=== PATIENT | male | born 1950 | race Caucasian/White ===

== ENCOUNTER → 2018-03-06 08:38 | Outpatient (CLI) | payer OTHER, SELFPAY ==
[2018-03-06 09:30] LABS: Absolute Lymphocyte Count 0.22 X10^3/ul (0.83-4.51); Absolute Neutrophil Count 3.8 X10^3/uL (2.0-7.7); Basophil# 0.02 X10^3/uL; Basophil% 0.5 % (0-1); Eosinophil# 0.04 X10^3/uL; Eosinophils% 0.9 % (0-5); Hematocrit 32.6 % (40-54); Hemoglobin 10.3 g/dl (13.0-16.5); Lymphocyte # 0.22 X10^3/ul (4.0); Lymphocyte % 5.1 % (19-41); Mean Corp Hgb Conc 31.6 g/gl (32-36); Mean Corpuscular Hgb 34.4 pg (27.0-32.0); Mean Platelet Vol. 9.8 fl (6.2-12.0); Monocyte# 0.18 X10^3/uL; Monocyte% 4.2 % (0-10); Neutrophil # 3.75 X10^3/uL (2.7-7.7); Neutrophil % 87.4 % (47-70); POSITIVE COUNT NO; POSITIVE DIFFERENTIAL YES; POSITIVE MORPHOLOGY YES; Platelet Count 166 K/mm3 (150-450); RBC Distribution Width CV 16.8 % (11.6-14.6); RBC Distribution Width SD 65.2 fl (35.1-43.9); Red Blood Count 2.99 M/mm3 (4.6-6.2); White Blood Count 4.3 K/mm3 (4.4-11.0)
[2018-03-06 09:31] LABS: Differential Indicated SCAN CRITERIA MET
[2018-03-06 09:39] LABS: BUN 61 mg/dL (7-18); BUN/Creat Ratio 38.4 RATIO (10-20); Calcium,Total 8.8 mg/dL (8.5-10.1); Chloride 105 mmol/L (98-107); Creatinine, Serum 1.59 mg/dL (0.70-1.30); EST Glomerular Filtration Rate 46 mL/min (>60); Est Glom Filt Rate - Afr Amer 56 mL/min (>60); Glucose 109 mg/dL (74-106); Magnesium 1.7 mg/dL (1.6-2.6); Phosphorus 2.2 mg/dL (2.5-4.9); Potassium 4.2 mmol/L (3.5-5.1); Sodium Level 141 mmol/L (136-145)
[2018-03-06 09:41] LABS: Anisocytosis 2+; Differential Comment SCANNED; Macrocytosis 2+
[2018-03-10 13:46] LABS: Tacrolimus (FK506) 4.7 ng/mL (2.0-20.0)
== END ==
PROVIDERS: Family Provider Family Medicine; PCP Family Medicine
DX: Z94.0 Kidney transplant status (principal)
CPT/HCPCS: 36415; 80069; 80197; 83735; 85025

== ENCOUNTER 2018-10-06 12:54 | Inpatient (IN) | payer MEDICARE, SELFPAY ==
[2018-10-06 13:02] VITALS: BP 144/101; PULSE 89; RESP 22; TEMP 36.7; O2SAT 99; BMI 34.4
--- NOTE | 2018-10-06 13:07 | EKG12_ITS ---
Test Reason : WEAKNESS Blood Pressure : / mmHG Vent. Rate : 088 BPM Atrial Rate : 088 BPM P-R Int : 198 ms QRS Dur : 144 ms QT Int : 388 ms P-R-T Axes : 011 -02 -10 degrees QTc Int : 469 ms Sinus rhythm with occasional Premature ventricular complexes Right bundle branch block Minimal voltage criteria for LVH, may be normal variant Abnormal ECG Confirmed by JAVIER FERRARO, JOSE ([id number]), acquisition editor BRIGETTE PNEG ([id number]) on 10/07/2018 1:35:06 PM Referred By: Bulmaro Person Confirmed By:JOSE HERRERA MD
--- NOTE | 2018-10-06 13:32 | RAD_ITS ---
STUDY: X-RAY CHEST REASON FOR EXAM: Male, 67 years old. Weakness following a fall. TECHNIQUE: Single AP portable view of the chest. COMPARISON: None. FINDINGS: EKG electrodes are seen. Blunting of both cost phrenic angles with mild bibasilar atelectasis. There is moderate cardiac enlargement. Normal mediastinum and bran. Normal visualized pulmonary arteries. There is atherosclerotic calcification of the aortic arch with tortuosity. There are diffuse degenerative changes of the visualized thoracic spine. There is degenerative osteoarthritis of the bilateral shoulders. Distended colon especially of the splenic flexure. RAD/Chest 1 View (Portable) IMPRESSION: Blunting of both costophrenic angles with mild degree of bibasilar atelectasis. Cardiomegaly. Distended colon. Electronically Signed: Kareem Mejia, at 14:15 EDT , Service support ,
--- NOTE | 2018-10-06 13:32 | CT_ITS ---
STUDY: CT BRAIN WITHOUT CONTRAST REASON FOR EXAM: Male, 67 years old. History of falls. RADIATION DOSAGE (If Supplied By Facility): CTDIvol = ( 60.81 ) mGy, DLP = ( 1135.50 ) mGycm TECHNIQUE: Transaxial CT imaging of the brain was performed without administration of intravenous contrast material. Individualized dose optimization techniques were used for this CT. COMPARISON: No relevant priors. FINDINGS: Normal soft tissue structures. Normal calvarium. There is mild cerebral atrophy with widening of the extra-axial spaces and ventricular dilatation. Normal white matter tracts of the cerebral hemispheres. Normal basal ganglia and thalami. Normal brainstem. Normal cerebellum. There is no intracranial hemorrhage. There are no findings of an acute ischemic infarction. Atherosclerotic calcification of the cavernous portions of the internal carotid arteries bilaterally. Mucosal thickening of the left maxillary sinus and ethmoid sinus. CT/Brain/Head without Contrast IMPRESSION: Chronic involutional changes of the brain. Electronically Signed: Kareem Mejia, at 14:35 EDT , Service support ,
[2018-10-06 15:03] LABS: Absolute Lymphocyte Count 0.85 X10^3/ul (0.83-4.51); Absolute Neutrophil Count 6.7 X10^3/uL (2.0-7.7); Basophil# 0.01 X10^3/uL; Basophil% 0.1 % (0-1); Hematocrit 36.7 % (40-54); Hemoglobin 11.9 g/dl (13.0-16.5); Lymphocyte # 0.85 X10^3/ul (4.0); Lymphocyte % 9.3 % (19-41); Mean Corp Hgb Conc 32.4 g/gl (32-36); Mean Corpuscular Hgb 32.1 pg (27.0-32.0); Mean Corpuscular Volume 98.9 fL (80-94); Mean Platelet Vol. 11.3 fl (6.2-12.0); Monocyte# 1.47 X10^3/uL; Monocyte% 16.2 % (0-10); Neutrophil # 6.68 X10^3/uL (2.7-7.7); Neutrophil % 73.4 % (47-70); Platelet Count 98 K/mm3 (150-450); RBC Distribution Width CV 13.6 % (11.6-14.6); RBC Distribution Width SD 49.1 fl (35.1-43.9); Red Blood Count 3.71 M/mm3 (4.6-6.2); White Blood Count 9.1 K/mm3 (4.4-11.0)
[2018-10-06 15:04] LABS: POSITIVE COUNT NO; POSITIVE DIFFERENTIAL NO; POSITIVE MORPHOLOGY NO
[2018-10-06 15:30] LABS: Squamous Epithelial Cells - UA 0 SEEN /hpf (0-5)
[2018-10-06 15:33] LABS: AST(SGOT) 68 U/L (15-37); Alanine Aminotransfer ALT/SGPT 28 U/L (16-61); Albumin, Serum 2.9 g/dL (3.2-5.0); Alkaline Phosphatase 62 U/L (45-117); Anion Gap 9 (5-15); BUN 53 mg/dL (7-18); BUN/Creat Ratio 29.9 RATIO (10-20); Bilirubin, Direct 0.38 mg/dL (0.00-0.30); Chloride 112 mmol/L (98-107); Creatinine, Serum 1.77 mg/dL (0.70-1.30); EST Glomerular Filtration Rate 41 mL/min (>60); Est Glom Filt Rate - Afr Amer 49 mL/min (>60); Estimated Creatinine Clearance 40.67 ml/min; Glucose 127 mg/dL (74-106); Lipase 55 U/L (73-393); Potassium 5.2 mmol/L (3.5-5.1); Protein, Total 5.9 g/dL (6.4-8.2); Sodium Level 143 mmol/L (136-145)
[2018-10-06 15:36] VITALS: BP 141/106; PULSE 86; RESP 22; O2SAT 97
[2018-10-06 15:37] LABS: Color, Urine Amber (Yellow); Glucose, Dipstick 1000 mg/dl (Normal); Ketone-Dipstick 5 mg/dl (Negative); Leukocyte Esterase-Dipstick 25 /ul (Negative); Nitrite-Dipstick Negative (Negative); Occult Blood-Urine 250 /ul (Negative); Protein-Dipstick 100 mg/dl (Negative); Specific Gravity, Urine 1.025 (1.002-1.030); Urine Clarity Clear (Clear); Urine Urobilinogen 4 mg/dl (Normal)
[2018-10-06 15:43] LABS: Urine Bilirubin Dipstick 1 mg/dL (Negative)
[2018-10-06 15:44] LABS: Valproic Acid (Depakene) Level 50 ug/mL (50-100)
[2018-10-06 15:47] LABS: Bacteria 3+ /hpf (None Seen); Fine Granular Cast- Urine 0-5 SEEN /lpf (0-5); Hyaline Cast 0-5 SEEN /lpf (0-5); Mucous, Urine 1+ /hpf (<or=2+); Red Blood Cells-Urine 0-5 SEEN /hpf (0-5); White Blood Cells 0-5 SEEN /hpf (0-5)
--- NOTE | 2018-10-06 16:22 | ED.VISSUMM ---
- ER Visit Summary Date of Service: 10/06/18 Chief Complaint: Falls History of Present Illness: The patient is a 67 M who was found on the ground today by family. He apparently has laid there for about 24 hours. Patient states that he was feeling nauseated after eating [employer] and laid down on the ground. While there he vomited. 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 He also notes a history of seizures for which he takes Depakote. He tells me that and family concurs that up until 1 month ago he drove himself to [place] for his nephrology appointment. Family states that his and he has had very much frequent falls recently. He stopped going over to their house because they have several steps to go up into it. He is developed a tremor at his baseline. The patient is noted to be confused by family Physical Examination: Afebrile vital signs are stable Gen: Well-nourished well-developed Head: Normocephalic periorbital swelling Eyes: Perrl EOMI ENT: TMs clear no rhinorrhea moist mucous membranes Neck: Supple no lymphadenopathy no JVD nontender CVS: Regular rate rhythm no murmurs normal S1-S2 Respiratory: No distress clear to auscultation bilaterally chest nontender Abdomen: Soft nontender nondistended normal bowel sounds no masses Back: Nontender Extremity: Audible abrasions and contusions. Skin: Ecchymotic area on the right posterior iliac crest region. Neuro: alert orientated x3. However he speaks of his living at home even though she has . He appears globally weak. He has a resting tremor. Psych: Normal affect normal mood Test Results: White count 9.1 hemoglobin 11.9. EKG sinus at a rate of 88 with a right bundle branch block. Creatinine 1.77 BUN of 53. Chest x-ray negative. CT brain negative. CPK is 1518. Emergency Department Course and Treatment: Given IV fluids. Plan will be admission to the hospital. Patient will need physical therapy as well as social work consults. I have reservation about this patient returning to the home. Impression: 1. Rhabdomyolysis 2. Functional decline 3. Renal transplant patient This note was generated with [employer] software. It may contain incorrect words, spelling, and punctuation that were not noted in review of the chart prior to signing ED Disposition - Plan for ED Patient: Referrals: Maame Osorio [Primary Care Provider] -
[2018-10-06 16:27] LABS: CPK Total, Creatine Kinase 1518 U/L (39-308)
[2018-10-06] MEDS: 0.9% Normal Saline 1,000 ML 999 ML IV (16:31)
[2018-10-06 17:09] VITALS: BP 195/90; PULSE 88
[2018-10-06 17:16] VITALS: BMI 34.4
--- NOTE | 2018-10-06 17:35 | PCM.HP.STD ---
Problem List (1) Rhabdomyolysis Status: Acute Qualifiers: Encounter type: initial encounter (2) Failure to thrive Status: Acute Qualifiers: Failure to thrive age range: in adult Qualified Code(s): R62.7 - Adult failure to thrive History of Present Illness Date of Admission: 10/06/18 Chief Complaint: falls The patient is a 67 year old M who has been falling intermittently over the past several months. Patient's had several falls over the past week and then felt today. Patient's jyrosw-np-xhb is present and provides much of the history, the patient is confused and unable to provide history at this time. Patient sister a lot while his 3 houses down from and with the patient was contacting his neighbor to help him up. And so patient was brought to the hospital this time around. Patient was found to have rhabdomyolysis with a CPK of 1518. The rest of his workup was unremarkable. [] Past Medical History Medical History: Medical History (Last Updated 10/06/18 @ 17:39 by Bulmaro Person DO) BPH (benign prostatic hyperplasia) N40.0 Allergies No Known Allergies Allergy (Verified 10/06/18 13:02) Home Medications: Ambulatory Orders Medication Instructions Recorded Docusate Sodium 100 mg PO DAILY 10/06/18 Folic Acid/Vit B Complex and C 0.8 mg PO DAILY 10/06/18 [Renal-Colton Tablet] Prednisone 5 mg PO DAILY 10/06/18 Tacrolimus Anhydrous [Prograf] 3 mg PO TID 10/06/18 Tamsulosin HCl [Flomax] 0.4 mg PO DAILY 10/06/18 Surgical History: Surgical History (Last Updated 10/06/18 @ 17:38 by Bulmaro Person DO) Renal transplant recipient Z94.0 Lives: Alone Smoking Status: Never smoker Tobacco Use: Non-smoker Alcohol: None Drugs: None - *Family History Maternal History Items: Unknown Review of Systems Comment: Unable to obtain review of systems, social history, family history because the patient is confused and not a reliable historian at this time. VTE Information - Inpt Only VTE Present on Admission: No VTE Pharm Prophylaxis ordered?: Yes Patient Problems: Active and Suspected Problems Rhabdomyolysis (Acute) Failure to thrive (Acute) - Physical Exam General: Alert, Well developed, Well nourished, - - Oriented to self. 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 Sloughing skin of the lower extremities. Musculoskeletal: No Tenderness to Palpation of Joints or Extremities, No Muscle Wasting Neurological: Cranial nerves II-XII grossly intact, Neuro grossly intact, Motor Exam 5/5 strength throughout, - - Tremulousness in the upper extremities Psych/Mental Status: Appropriate, Anxious Vital Signs Temp Pulse Resp BP Pulse Ox 36.7 C 88 22 H 195/90 H 97 10/06/18 13:02 10/06/18 17:09 10/06/18 15:36 10/06/18 17:09 10/06/18 15:36 Oxygen Delivery Method Room Air Weight: 108.862 kg Body Mass Index (BMI) 34.4 Laboratory Tests Past 24 Hrs 10/06/18 10/06/18 10/06/18 14:45 14:45 14:45 WBC 9.1 RBC 3.71 L Hgb 11.9 L Hct 36.7 L MCV 98.9 H MCH 32.1 H MCHC 32.4 RDW 13.6 RDW Differential 49.1 H Plt Count 98 L MPV 11.3 Immature Gran % (Auto) 1.000 H Neut % (Auto) 73.4 H Lymph % (Auto) 9.3 L [place] % (Auto) 16.2 H Eos % (Auto) 0.0 Baso % (Auto) 0.1 Absolute Neuts (auto) 6.7 Absolute Lymphs (auto) 0.85 Total Counted Not Reportable Sodium 143 Potassium 5.2 H Chloride 112 H Carbon Dioxide 22.0 Anion Gap 9 BUN 53 H Creatinine 1.77 H Estim Creat Clear Calc 40.67 Est GFR (MDRD) Af Amer 49 L Est GFR (MDRD) Non-Af 41 L BUN/Creatinine Ratio 29.9 H Glucose 127 H Calcium 10.0 Total Bilirubin 0.80 Direct Bilirubin 0.38 H AST 68 H ALT 28 Alkaline Phosphatase 62 Total Creatine Kinase 1518 H Troponin I 0.078 H Total Protein 5.9 L Albumin 2.9 L Globulin 3.0 Lipase 55 L Urine Color Urine Clarity Urine pH Ur Specific [place] Urine Protein Urine Glucose (UA) Urine Ketones Urine Occult Blood Urine Nitrite Urine Bilirubin Urine Urobilinogen Ur Leukocyte Esterase Urine RBC Urine WBC Ur Squamous Epith Cells Urine Bacteria Hyaline Casts Fine Granular Casts Urine Mucus Valproic Acid 10/06/18 10/06/18 14:45 15:15 WBC RBC Hgb Hct MCV MCH MCHC RDW RDW Differential Plt Count MPV Immature Gran % (Auto) Neut % (Auto) Lymph % (Auto) [place] % (Auto) Eos % (Auto) Baso % (Auto) Absolute Neuts (auto) Absolute Lymphs (auto) Total Counted Sodium Potassium Chloride Carbon Dioxide Anion Gap BUN Creatinine Estim Creat Clear Calc Est GFR (MDRD) Af Amer Est GFR (MDRD) Non-Af BUN/Creatinine Ratio Glucose Calcium Total Bilirubin Direct Bilirubin AST ALT Alkaline Phosphatase Total Creatine Kinase Troponin I Total Protein Albumin Globulin Lipase Urine Color Jami Urine Clarity Clear Urine pH 5.0 Ur Specific [place] 1.025 Urine Protein 100 H Urine Glucose (UA) 1000 H Urine Ketones 5 H Urine Occult Blood 250 H Urine Nitrite Negative Urine Bilirubin 1 H Urine Urobilinogen 4 H Ur Leukocyte Esterase 25 H Urine RBC 0-5 SEEN Urine WBC 0-5 SEEN Ur Squamous Epith Cells 0 SEEN Urine Bacteria 3+ Hyaline Casts 0-5 SEEN Fine Granular Casts 0-5 SEEN Urine Mucus 1+ Valproic Acid 50 Clinical Impression(s) from Imaging Studies Brain CT 10/06/18 13:32 IMPRESSION: Chronic involutional changes of the brain. Electronically Signed: Kareem Mejia, at 14:35 EDT , Service support , Chest X-Ray 10/06/18 13:32 IMPRESSION: Blunting of both costophrenic angles with mild degree of bibasilar atelectasis. Cardiomegaly. Distended colon. Electronically Signed: Kareem Mejia, at 14:15 EDT , Service support , Assessment/Plan All Active Problems Rhabdomyolysis (Acute) Failure to thrive (Acute) 1. Acute rhabdomyolysis: Secondary to being down for period of time. Continue with IV fluids Recheck CPK in the morning Troponins were slightly elevated and this may be skewed upwards given the rhabdomyolysis. We will cycle the troponins. 2. Suspected metabolic encephalopathy Perhaps secondary to some dehydration. Review of his medications do not reveal any obvious Etiology at this time. Avoid potentiating medications 3. Status post renal transplant Discussed with patient's jundqyvo-[id number] that we can manage him here and continue with his transplant medications but if any sign of worsening kidney failure that he may need to be transferred to another hospital with transplant physicians. Will request records from [facility] in regards to their transplant unit. 4. Debility and failure to thrive Has been progressive over the past several months Physical and occupational therapy evaluate and treat Suspect patient may require long term facility upon discharge 5. DVT prophylaxis with subcu heparin. Code Visit Inpatient E&M: 02141 Init Hosp L3
--- NOTE | 2018-10-06 17:40 | HP.PCM_ITS ---
Problem List (1) Rhabdomyolysis Status: Acute Qualifiers: Encounter type: initial encounter (2) Failure to thrive Status: Acute Qualifiers: Failure to thrive age range: in adult Qualified Code(s): R62.7 - Adult failure to thrive History of Present Illness Date of Admission: 10/06/18 Chief Complaint: falls The patient is a 67 year old M who has been falling intermittently over the past several months. Patient's had several falls over the past week and then felt today. Patient's [id number] is present and provides much of the history, the patient is confused and unable to provide history at this time. Patient sister a lot while his 3 houses down from and with the patient was contacting his neighbor to help him up. And so patient was brought to the hospital this time around. Patient was found to have rhabdomyolysis with a CPK of 1518. The rest of his workup was unremarkable. [] Past Medical History Medical History: Medical History (Last Updated 10/06/18 @ 17:39 by Bulmaro Person DO) BPH (benign prostatic hyperplasia) N40.0 Allergies No Known Allergies Allergy (Verified 10/06/18 13:02) Home Medications: Ambulatory Orders Medication Instructions Recorded Docusate Sodium 100 mg PO DAILY 10/06/18 Folic Acid/Vit B Complex and C 0.8 mg PO DAILY 10/06/18 [Renal-Colton Tablet] Prednisone 5 mg PO DAILY 10/06/18 Tacrolimus Anhydrous [Prograf] 3 mg PO TID 10/06/18 Tamsulosin HCl [Flomax] 0.4 mg PO DAILY 10/06/18 Surgical History: Surgical History (Last Updated 10/06/18 @ 17:38 by Bulmaro Person DO) Renal transplant recipient Z94.0 Lives: Alone Smoking Status: Never smoker Tobacco Use: Non-smoker Alcohol: None Drugs: None - *Family History Maternal History Items: Unknown Review of Systems Comment: Unable to obtain review of systems, social history, family history because the patient is confused and not a reliable historian at this time. VTE Information - Inpt Only VTE Present on Admission: No VTE Pharm Prophylaxis ordered?: Yes Patient Problems: Active and Suspected Problems Rhabdomyolysis (Acute) Failure to thrive (Acute) - Physical Exam General: Alert, Well developed, Well nourished, - - Oriented to self. 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 Sloughing skin of the lower extremities. Musculoskeletal: No Tenderness to Palpation of Joints or Extremities, No Muscle Wasting Neurological: Cranial nerves II-XII grossly intact, Neuro grossly intact, Motor Exam 5/5 strength throughout, - - Tremulousness in the upper extremities Psych/Mental Status: Appropriate, Anxious Vital Signs Temp Pulse Resp BP Pulse Ox 36.7 C 88 22 H 195/90 H 97 10/06/18 13:02 10/06/18 17:09 10/06/18 15:36 10/06/18 17:09 10/06/18 15:36 Oxygen Delivery Method Room Air Weight: 108.862 kg Body Mass Index (BMI) 34.4 Laboratory Tests Past 24 Hrs 10/06/18 10/06/18 10/06/18 14:45 14:45 14:45 WBC 9.1 RBC 3.71 L Hgb 11.9 L Hct 36.7 L MCV 98.9 H MCH 32.1 H MCHC 32.4 RDW 13.6 RDW Differential 49.1 H Plt Count 98 L MPV 11.3 Immature Gran % (Auto) 1.000 H Neut % (Auto) 73.4 H Lymph % (Auto) 9.3 L [place] % (Auto) 16.2 H Eos % (Auto) 0.0 Baso % (Auto) 0.1 Absolute Neuts (auto) 6.7 Absolute Lymphs (auto) 0.85 Total Counted Not Reportable Sodium 143 Potassium 5.2 H Chloride 112 H Carbon Dioxide 22.0 Anion Gap 9 BUN 53 H Creatinine 1.77 H Estim Creat Clear Calc 40.67 Est GFR (MDRD) Af Amer 49 L Est GFR (MDRD) Non-Af 41 L BUN/Creatinine Ratio 29.9 H Glucose 127 H Calcium 10.0 Total Bilirubin 0.80 Direct Bilirubin 0.38 H AST 68 H ALT 28 Alkaline Phosphatase 62 Total Creatine Kinase 1518 H Troponin I 0.078 H Total Protein 5.9 L Albumin 2.9 L Globulin 3.0 Lipase 55 L Urine Color Urine Clarity Urine pH Ur Specific [place] Urine Protein Urine Glucose (UA) Urine Ketones Urine Occult Blood Urine Nitrite Urine Bilirubin Urine Urobilinogen Ur Leukocyte Esterase Urine RBC Urine WBC Ur Squamous Epith Cells Urine Bacteria Hyaline Casts Fine Granular Casts Urine Mucus Valproic Acid 10/06/18 10/06/18 14:45 15:15 WBC RBC Hgb Hct MCV MCH MCHC RDW RDW Differential Plt Count MPV Immature Gran % (Auto) Neut % (Auto) Lymph % (Auto) [place] % (Auto) Eos % (Auto) Baso % (Auto) Absolute Neuts (auto) Absolute Lymphs (auto) Total Counted Sodium Potassium Chloride Carbon Dioxide Anion Gap BUN Creatinine Estim Creat Clear Calc Est GFR (MDRD) Af Amer Est GFR (MDRD) Non-Af BUN/Creatinine Ratio Glucose Calcium Total Bilirubin Direct Bilirubin AST ALT Alkaline Phosphatase Total Creatine Kinase Troponin I Total Protein Albumin Globulin Lipase Urine Color Jami Urine Clarity Clear Urine pH 5.0 Ur Specific [place] 1.025 Urine Protein 100 H Urine Glucose (UA) 1000 H Urine Ketones 5 H Urine Occult Blood 250 H Urine Nitrite Negative Urine Bilirubin 1 H Urine Urobilinogen 4 H Ur Leukocyte Esterase 25 H Urine RBC 0-5 SEEN Urine WBC 0-5 SEEN Ur Squamous Epith Cells 0 SEEN Urine Bacteria 3+ Hyaline Casts 0-5 SEEN Fine Granular Casts 0-5 SEEN Urine Mucus 1+ Valproic Acid 50 Clinical Impression(s) from Imaging Studies Brain CT 10/06/18 13:32 IMPRESSION: Chronic involutional changes of the brain. Electronically Signed: Kareem Mejia, at 14:35 EDT , Service support , Chest X-Ray 10/06/18 13:32 IMPRESSION: Blunting of both costophrenic angles with mild degree of bibasilar atelectasis. Cardiomegaly. Distended colon. Electronically Signed: Kareem Mejia, at 14:15 EDT , Service support , Assessment/Plan All Active Problems Rhabdomyolysis (Acute) Failure to thrive (Acute) 1. Acute rhabdomyolysis: * Secondary to being down for period of time. * Continue with IV fluids * Recheck CPK in the morning * Troponins were slightly elevated and this may be skewed upwards given the rhabdomyolysis. We will cycle the troponins. 2. Suspected metabolic encephalopathy * Perhaps secondary to some dehydration. Review of his medications do not reveal any obvious Etiology at this time. * Avoid potentiating medications 3. Status post renal transplant * Discussed with patient's drdrhofh-[id number] that we can manage him here and continue with his transplant medications but if any sign of worsening kidney failure that he may need to be transferred to another hospital with transplant physicians. * Will request records from [facility] in regards to their transplant unit. 4. Debility and failure to thrive * Has been progressive over the past several months * Physical and occupational therapy evaluate and treat * Suspect patient may require detention facility upon discharge 5. DVT prophylaxis with subcu heparin. Code Visit Inpatient E&M: 86189 Init Hosp L3
[2018-10-06 18:45] VITALS: BP 122/90; PULSE 89; RESP 18; TEMP 37.5; O2SAT 99
[2018-10-06 18:55] VITALS: BMI 36.1
[2018-10-06] MEDS: 0.9% Normal Saline 1,000 ML 150 ML IV ×2 (19:03→22:45)
[2018-10-06] MEDS: levETIRAcetam 1,000 MG Tablet 1000 MG PO (22:46)
[2018-10-06] MEDS: Heparin Injection (Vial) 5,000 UNIT/ML VIAL 5000 UNIT SC (22:46)
[2018-10-06] MEDS: Tacrolimus Anhydrous 1 MG Capsule 3 MG PO (22:47)
[2018-10-06 23:05] LABS: Bedside Glucose 79 mg/dL (70-110)
[2018-10-07 01:27] VITALS: BP 136/96; PULSE 59; RESP 18; TEMP 37.4; O2SAT 97
[2018-10-07] MEDS: 0.9% Normal Saline 1,000 ML 150 ML IV ×3 (05:32→19:50)
[2018-10-07] MEDS: Tacrolimus Anhydrous 1 MG Capsule 3 MG PO ×3 (05:34→21:30)
[2018-10-07] MEDS: Heparin Injection (Vial) 5,000 UNIT/ML VIAL 5000 UNIT SC ×3 (05:34→21:30)
[2018-10-07 06:28] LABS: Absolute Lymphocyte Count 1.51 X10^3/ul (0.83-4.51); Absolute Neutrophil Count 4.9 X10^3/uL (2.0-7.7); Basophil# 0.01 X10^3/uL; Basophil% 0.1 % (0-1); Eosinophil# 0.01 X10^3/uL; Eosinophils% 0.1 % (0-5); Hematocrit 29.9 % (40-54); Hemoglobin 9.6 g/dl (13.0-16.5); Lymphocyte # 1.51 X10^3/ul (4.0); Lymphocyte % 21.4 % (19-41); Mean Corp Hgb Conc 32.1 g/gl (32-36); Mean Corpuscular Hgb 32.8 pg (27.0-32.0); Mean Platelet Vol. 11.6 fl (6.2-12.0); Monocyte# 0.65 X10^3/uL; Monocyte% 9.2 % (0-10); Neutrophil # 4.85 X10^3/uL (2.7-7.7); Neutrophil % 68.6 % (47-70); Platelet Count 112 K/mm3 (150-450); RBC Distribution Width CV 13.9 % (11.6-14.6); RBC Distribution Width SD 51.7 fl (35.1-43.9); Red Blood Count 2.93 M/mm3 (4.6-6.2); White Blood Count 7.1 K/mm3 (4.4-11.0)
[2018-10-07 06:39] LABS: Anion Gap 6 (5-15); BUN 53 mg/dL (7-18); BUN/Creat Ratio 32.3 RATIO (10-20); Calcium,Total 9.1 mg/dL (8.5-10.1); Chloride 113 mmol/L (98-107); Creatinine, Serum 1.64 mg/dL (0.70-1.30); EST Glomerular Filtration Rate 44 mL/min (>60); Est Glom Filt Rate - Afr Amer 54 mL/min (>60); Estimated Creatinine Clearance 43.89 ml/min; Glucose 112 mg/dL (74-106); Potassium 4.7 mmol/L (3.5-5.1); Sodium Level 143 mmol/L (136-145)
[2018-10-07 06:40] LABS: POSITIVE COUNT NO; POSITIVE DIFFERENTIAL NO; POSITIVE MORPHOLOGY NO
[2018-10-07 06:50] LABS: Bedside Glucose 125 mg/dL (70-110)
[2018-10-07 07:23] LABS: CPK Total, Creatine Kinase 1348 U/L (39-308)
[2018-10-07] MEDS: predniSONE 5 MG Tablet PO (08:31)
[2018-10-07] MEDS: Folic Acid/Vitamin B Comp W-C 1 Capsule 1 CAP PO (08:31)
[2018-10-07 08:33] VITALS: BP 126/74; PULSE 85; RESP 18; TEMP 37; O2SAT 98
--- NOTE | 2018-10-07 09:50 | PCM.PN.HOSP ---
Patient Problems: Active and Suspected Problems (Last Updated 10/06/18 @ 17:39 by Bulmaro Person DO) Rhabdomyolysis (Acute) Failure to thrive (Acute) Subjective: Patient seen and examined. He was admitted with a complaint of falls. He was found to have rhabdomyolysis with C PT of 1518. He has been managed for debility due to mechanical falls and rhabdomyolysis. Patient has no complaints this morning and feels better. He did admit to falling frequently at home. He lives alone and states that on Saturday he fell down and was on the floor for the whole day as he could not get up. He does have family that lives close by. He denies any fever chills, palpitations or dizziness, chest pain, diarrhea vomiting. Review of systems otherwise negative. Labs and vitals reviewed. Vitals/I&O's: Vital Signs Temp Pulse Resp BP Pulse Ox 98.6 F 85 18 126/74 H 98 10/07/18 08:33 10/07/18 08:33 10/07/18 08:33 10/07/18 08:33 10/07/18 08:33 Oxygen Delivery Method Room Air Weight: 251 lb 15.814 oz Body Mass Index (BMI) 36.1 Intake and Output for Last 24 Hours 10/05/18 10/06/18 10/07/18 23:59 23:59 23:59 Intake Total 2800 / 2800 Balance 2800 / 2800 General: Alert, Oriented x3, Cooperative, No apparent distress HEENT: Atraumatic, PERRLA, EOMI, Normocephalic Oral: Moist Mucosa Neck: Supple, No JVD, Negative Carotid Bruits Lungs: Clear to auscultation, Normal air movement, No rhonchi, No wheeze, No rales Cardiovascular: Regular rate, Regular Rhythm, Normal S1, Normal S2, No murmurs Abdomen: Bowel Sounds Present, Soft, Non Tender, Non-Distended, No Hepato-splenomegaly Extremities: No clubbing, No cyanosis, No edema, Capillary Refill Less than 3 Seconds Skin: - - has some excoriation s on upper extremities Musculoskeletal: No Tenderness to Palpation of Joints or Extremities Lymphatic: No Cervical, Supraclavicular, or Inguinal Adenopathy Neurological: Cranial nerves II-XII grossly intact, Neuro grossly intact Psych/Mental Status: Normal Affect, Appropriate, Alert and oriented to time, place, person, mood and affect Laboratory Results 10/06/18 14:45: WBC 9.1, RBC 3.71 L, Hgb 11.9 L, Hct 36.7 L, MCV 98.9 H, MCH 32.1 H, MCHC 32.4, RDW 13.6, RDW Differential 49.1 H, Plt Count 98 L, MPV 11.3, Immature Gran % (Auto) 1.000 H, Neut % (Auto) 73.4 H, Lymph % (Auto) 9.3 L, [place] % (Auto) 16.2 H, Eos % (Auto) 0.0, Baso % (Auto) 0.1, Absolute Neuts (auto) 6.7, Absolute Lymphs (auto) 0.85, Total Counted Not Reportable 10/06/18 14:45: Sodium 143, Potassium 5.2 H, Chloride 112 H, Carbon Dioxide 22.0, Anion Gap 9, BUN 53 H, Creatinine 1.77 H, Estim Creat Clear Calc 40.67, Est GFR (MDRD) Af Amer 49 L, Est GFR (MDRD) Non-Af 41 L, BUN/Creatinine Ratio 29.9 H, Glucose 127 H, Calcium 10.0, Total Bilirubin 0.80, Direct Bilirubin 0.38 H, AST 68 H, ALT 28, Alkaline Phosphatase 62, Troponin I 0.078 H, Total Protein 5.9 L, Albumin 2.9 L, Globulin 3.0, Lipase 55 L 10/06/18 14:45: Total Creatine Kinase 1518 H 10/06/18 14:45: Valproic Acid 50 10/06/18 15:15: Urine Color Jami, Urine Clarity Clear, Urine pH 5.0, Ur Specific [place] 1.025, Urine Protein 100 H, Urine Glucose (UA) 1000 H, Urine Ketones 5 H, Urine Occult Blood 250 H, Urine Nitrite Negative, Urine Bilirubin 1 H, Urine Urobilinogen 4 H, Ur Leukocyte Esterase 25 H, Urine RBC 0-5 SEEN, Urine WBC 0-5 SEEN, Ur Squamous Epith Cells 0 SEEN, Urine Bacteria 3+, Hyaline Casts 0-5 SEEN, Fine Granular Casts 0-5 SEEN, Urine Mucus 1+ 10/06/18 18:26: Ammonia 17.0 10/06/18 19:25: Troponin I 0.079 H 10/06/18 21:58: Troponin I 0.095 H 10/06/18 22:55: POC Glucose 79 10/07/18 05:18: WBC 7.1, RBC 2.93 L, Hgb 9.6 L, Hct 29.9 L, MCV 102.0 H, MCH 32.8 H, MCHC 32.1, RDW 13.9, RDW Differential 51.7 H, Plt Count 112 L, MPV 11.6, Immature Gran % (Auto) 0.600, Neut % (Auto) 68.6, Lymph % (Auto) 21.4, [place] % (Auto) 9.2, Eos % (Auto) 0.1, Baso % (Auto) 0.1, Absolute Neuts (auto) 4.9, Absolute Lymphs (auto) 1.51, Total Counted Not Reportable 10/07/18 05:18: Sodium 143, Potassium 4.7, Chloride 113 H, Carbon Dioxide 24.0, Anion Gap 6, BUN 53 H, Creatinine 1.64 H, Estim Creat Clear Calc 43.89, Est GFR (MDRD) Af Amer 54 L, Est GFR (MDRD) Non-Af 44 L, BUN/Creatinine Ratio 32.3 H, Glucose 112 H, Calcium 9.1 10/07/18 05:18: Total Creatine Kinase 1348 H 10/07/18 06:35: POC Glucose 125 H Diagnostic Data Brain CT 10/06/18 13:32 IMPRESSION: Chronic involutional changes of the brain. Electronically Signed: Kareem Mejia, at 14:35 EDT , Service support , Chest X-Ray 10/06/18 13:32 IMPRESSION: Blunting of both costophrenic angles with mild degree of bibasilar atelectasis. Cardiomegaly. Distended colon. Electronically Signed: Kareem Mejia, at 14:15 EDT , Service support , Current Medications Acetaminophen (Tylenol) 650 mg PO Q6H PRN PRN PRN Reason: Mild Pain (1-3)/Temp > 100.7 F Dextrose (D50w Syringe) 0 gm IV X1 PRN; Protocol PRN Reason: Hypoglycemia Docusate Sodium (Colace) 100 mg PO DAILY [facility] Glucagon () 1 mg IM .X1 PRN PRN Reason: Hypoglycemia Heparin Sodium (Porcine) (Heparin Na) 5,000 unit SC Q8 [facility] Last Admin: 10/07/18 05:34 Dose: 5,000 unit Sodium Chloride () 1,000 mls @ 150 mls/hr IV .Q6H40M [facility] Last Admin: 10/07/18 05:32 Dose: 150 mls/hr Levetiracetam (Keppra Tablet) 1,000 mg PO BID [facility] Last Admin: 10/06/18 22:46 Dose: 1,000 mg Magnesium Hydroxide (Milk Of Magnesia) 30 ml PO DAILY PRN PRN PRN Reason: Constipation Multivit/Ca Carb/B Cmplx/FA/Prenat (Nephrocaps, Renaphro) 1 capsule PO DAILY@0800 [facility] Last Admin: 10/07/18 08:31 Dose: 1 capsule Nystatin (Mycostatin Powder) 1 applic TOPICAL TID [facility]; Protocol Ondansetron HCl (Zofran) 4 mg IV Q8H PRN PRN PRN Reason: NAUSEA Prednisone () 5 mg PO DAILY@0800 [facility] Last Admin: 10/07/18 08:31 Dose: 5 mg Sodium Chloride () 5 - 15 ml IV UD PRN PRN Reason: SALINE FLUSH Tacrolimus (Prograf) 3 mg PO TID [facility] Last Admin: 10/07/18 05:34 Dose: 3 mg Tamsulosin HCl (Flomax) 0.4 mg PO DAILY [facility] Medical Necessity - Tobacco Use Smoking Status: Never smoker Tobacco Use: Non-smoker Assessment/Plan All Active Problems (Last Updated 10/06/18 @ 17:39 by Bulmaro Person DO) Rhabdomyolysis (Acute) Failure to thrive (Acute) 1. Rhabdomyolysis due to mechanical falls CPK was 1518 on admission, now down to 1348. Being hydrated with IV fluids. Will monitor CPK. 2. Debility and failure to thrive due to mechanical falls Has been falling frequently at home. PT OT consulted. 3. CKD status post renal transplant: Had a renal transplant last year. Currently stable. Creatinine is 1.64, was 1.77 on admission. Follows up at [facility] transplant unit. 4. Hyperkalemia: Potassium was 5.2 on admission and is now down to 4.7. Will monitor. 5. Indeterminate troponin: Troponin was 0.078 on admission and is now up to 0.095. Has no complaints of chest pain. EKG showed no acute ST changes. This is likely due to CKD. Will monitor. DVT prophylaxis; heparin Code Visit Inpatient E&M: 33226 Subs Hosp L3
--- NOTE | 2018-10-07 09:57 | PN_ITS ---
Patient Problems: Active and Suspected Problems (Last Updated 10/06/18 @ 17:39 by Bulmaro Person DO) Rhabdomyolysis (Acute) Failure to thrive (Acute) Subjective: Patient seen and examined. He was admitted with a complaint of falls. He was found to have rhabdomyolysis with C PT of 1518. He has been managed for debility due to mechanical falls and rhabdomyolysis. Patient has no complaints this morning and feels better. He did admit to falling frequently at home. He lives alone and states that on Saturday he fell down and was on the floor for the whole day as he could not get up. He does have family that lives close by. He denies any fever chills, palpitations or dizziness, chest pain, diarrhea vomiting. Review of systems otherwise negative. Labs and vitals reviewed. Vitals/I&O's: Vital Signs Temp Pulse Resp BP Pulse Ox 98.6 F 85 18 126/74 H 98 10/07/18 08:33 10/07/18 08:33 10/07/18 08:33 10/07/18 08:33 10/07/18 08:33 Oxygen Delivery Method Room Air Weight: 251 lb 15.814 oz Body Mass Index (BMI) 36.1 Intake and Output for Last 24 Hours 10/05/18 10/06/18 10/07/18 23:59 23:59 23:59 Intake Total 2800 / 2800 Balance 2800 / 2800 General: Alert, Oriented x3, Cooperative, No apparent distress HEENT: Atraumatic, PERRLA, EOMI, Normocephalic Oral: Moist Mucosa Neck: Supple, No JVD, Negative Carotid Bruits Lungs: Clear to auscultation, Normal air movement, No rhonchi, No wheeze, No rales Cardiovascular: Regular rate, Regular Rhythm, Normal S1, Normal S2, No murmurs Abdomen: Bowel Sounds Present, Soft, Non Tender, Non-Distended, No Hepato- splenomegaly Extremities: No clubbing, No cyanosis, No edema, Capillary Refill Less than 3 Seconds Skin: - - has some excoriation s on upper extremities Musculoskeletal: No Tenderness to Palpation of Joints or Extremities Lymphatic: No Cervical, Supraclavicular, or Inguinal Adenopathy Neurological: Cranial nerves II-XII grossly intact, Neuro grossly intact Psych/Mental Status: Normal Affect, Appropriate, Alert and oriented to time, place, person, mood and affect Laboratory Results 10/06/18 14:45: WBC 9.1, RBC 3.71 L, Hgb 11.9 L, Hct 36.7 L, MCV 98.9 H, MCH 32.1 H, MCHC 32.4, RDW 13.6, RDW Differential 49.1 H, Plt Count 98 L, MPV 11.3, Immature Gran % (Auto) 1.000 H, Neut % (Auto) 73.4 H, Lymph % (Auto) 9.3 L, [place] % (Auto) 16.2 H, Eos % (Auto) 0.0, Baso % (Auto) 0.1, Absolute Neuts (auto) 6.7, Absolute Lymphs (auto) 0.85, Total Counted Not Reportable 10/06/18 14:45: Sodium 143, Potassium 5.2 H, Chloride 112 H, Carbon Dioxide 22.0, Anion Gap 9, BUN 53 H, Creatinine 1.77 H, Estim Creat Clear Calc 40.67, Est GFR (MDRD) Af Amer 49 L, Est GFR (MDRD) Non-Af 41 L, BUN/Creatinine Ratio 29.9 H, Glucose 127 H, Calcium 10.0, Total Bilirubin 0.80, Direct Bilirubin 0.38 H, AST 68 H, ALT 28, Alkaline Phosphatase 62, Troponin I 0.078 H, Total Protein 5.9 L, Albumin 2.9 L, Globulin 3.0, Lipase 55 L 10/06/18 14:45: Total Creatine Kinase 1518 H 10/06/18 14:45: Valproic Acid 50 10/06/18 15:15: Urine Color Jami, Urine Clarity Clear, Urine pH 5.0, Ur Specific [place] 1.025, Urine Protein 100 H, Urine Glucose (UA) 1000 H, Urine Ketones 5 H, Urine Occult Blood 250 H, Urine Nitrite Negative, Urine Bilirubin 1 H, Urine Urobilinogen 4 H, Ur Leukocyte Esterase 25 H, Urine RBC 0-5 SEEN, Urine WBC 0-5 SEEN, Ur Squamous Epith Cells 0 SEEN, Urine Bacteria 3+, Hyaline Casts 0-5 SEEN, Fine Granular Casts 0-5 SEEN, Urine Mucus 1+ 10/06/18 18:26: Ammonia 17.0 10/06/18 19:25: Troponin I 0.079 H 10/06/18 21:58: Troponin I 0.095 H 10/06/18 22:55: POC Glucose 79 10/07/18 05:18: WBC 7.1, RBC 2.93 L, Hgb 9.6 L, Hct 29.9 L, MCV 102.0 H, MCH 32.8 H, MCHC 32.1, RDW 13.9, RDW Differential 51.7 H, Plt Count 112 L, MPV 11.6, Immature Gran % (Auto) 0.600, Neut % (Auto) 68.6, Lymph % (Auto) 21.4, [place] % (Auto) 9.2, Eos % (Auto) 0.1, Baso % (Auto) 0.1, Absolute Neuts (auto) 4.9, Absolute Lymphs (auto) 1.51, Total Counted Not Reportable 10/07/18 05:18: Sodium 143, Potassium 4.7, Chloride 113 H, Carbon Dioxide 24.0, Anion Gap 6, BUN 53 H, Creatinine 1.64 H, Estim Creat Clear Calc 43.89, Est GFR (MDRD) Af Amer 54 L, Est GFR (MDRD) Non-Af 44 L, BUN/Creatinine Ratio 32.3 H, Glucose 112 H, Calcium 9.1 10/07/18 05:18: Total Creatine Kinase 1348 H 10/07/18 06:35: POC Glucose 125 H Diagnostic Data Brain CT 10/06/18 13:32 IMPRESSION: Chronic involutional changes of the brain. Electronically Signed: Kareem Mejia, at 14:35 EDT , Service support , Chest X-Ray 10/06/18 13:32 IMPRESSION: Blunting of both costophrenic angles with mild degree of bibasilar atelectasis. Cardiomegaly. Distended colon. Electronically Signed: Kareem Mejia, at 14:15 EDT , Service support , Current Medications Acetaminophen (Tylenol) 650 mg PO Q6H PRN PRN PRN Reason: Mild Pain (1-3)/Temp > 100.7 F Dextrose (D50w Syringe) 0 gm IV X1 PRN; Protocol PRN Reason: Hypoglycemia Docusate Sodium (Colace) 100 mg PO DAILY [facility] Glucagon () 1 mg IM .X1 PRN PRN Reason: Hypoglycemia Heparin Sodium (Porcine) (Heparin Na) 5,000 unit SC Q8 [facility] Last Admin: 10/07/18 05:34 Dose: 5,000 unit Sodium Chloride () 1,000 mls @ 150 mls/hr IV .Q6H40M [facility] Last Admin: 10/07/18 05:32 Dose: 150 mls/hr Levetiracetam (Keppra Tablet) 1,000 mg PO BID [facility] Last Admin: 10/06/18 22:46 Dose: 1,000 mg Magnesium Hydroxide (Milk Of Magnesia) 30 ml PO DAILY PRN PRN PRN Reason: Constipation Multivit/Ca Carb/B Cmplx/FA/Prenat (Nephrocaps, Renaphro) 1 capsule PO DAILY@0800 [facility] Last Admin: 10/07/18 08:31 Dose: 1 capsule Nystatin (Mycostatin Powder) 1 applic TOPICAL TID [facility]; Protocol Ondansetron HCl (Zofran) 4 mg IV Q8H PRN PRN PRN Reason: NAUSEA Prednisone () 5 mg PO DAILY@0800 [facility] Last Admin: 10/07/18 08:31 Dose: 5 mg Sodium Chloride () 5 - 15 ml IV UD PRN PRN Reason: SALINE FLUSH Tacrolimus (Prograf) 3 mg PO TID [facility] Last Admin: 10/07/18 05:34 Dose: 3 mg Tamsulosin HCl (Flomax) 0.4 mg PO DAILY [facility] Medical Necessity - Tobacco Use Smoking Status: Never smoker Tobacco Use: Non-smoker Assessment/Plan All Active Problems (Last Updated 10/06/18 @ 17:39 by Bulmaro Person DO) Rhabdomyolysis (Acute) Failure to thrive (Acute) 1. Rhabdomyolysis due to mechanical falls * CPK was 1518 on admission, now down to 1348. * Being hydrated with IV fluids. * Will monitor CPK. * 2. Debility and failure to thrive due to mechanical falls * Has been falling frequently at home. * PT OT consulted. * 3. CKD status post renal transplant: * Had a renal transplant last year. * Currently stable. * Creatinine is 1.64, was 1.77 on admission. * Follows up at [facility] transplant unit. * 4. Hyperkalemia: Potassium was 5.2 on admission and is now down to 4.7. Will monitor. 5. Indeterminate troponin: * Troponin was 0.078 on admission and is now up to 0.095. * Has no complaints of chest pain. EKG showed no acute ST changes. * This is likely due to CKD. Will monitor. * DVT prophylaxis; heparin Code Visit Inpatient E&M: 61218 Subs Hosp L3
[2018-10-07] MEDS: Nystatin Powder 15gm Bottle 1 APPLIC TOPICAL ×3 (10:35→21:30)
[2018-10-07] MEDS: Docusate Sodium 100 MG Capsule PO (10:36)
[2018-10-07] MEDS: levETIRAcetam 1,000 MG Tablet 1000 MG PO ×2 (10:36→21:30)
--- NOTE | 2018-10-07 12:13 | CASEMGMT ---
RAINA CM Assessment Presentation: falls @ home, rhabdo Chart reviewed PCP: Specialists: Preferred Pharmacy: Insurance: Prescription Benefit: LNOK: Living Arrangements: Transportation: DME: HHC: Patient DC goals: DC PLAN:
--- NOTE | 2018-10-07 12:22 | CASEMGMT ---
RN CM Assessment Presentation: Rhabdo from fall Intro role of CM to patient in room. Pt is sleepy but awakens and able to participate in consumer relations specialist. Demographics and emergency contact verified. Discussed pt's admission to hospital. Pt has been weaker and hx of falls. Discussed PT/OT recommendations for therapy on dc and pt is agreeable to consider short term stay @ SNF. Pt spoke of and now is living alone. RN CM offered emotional support. PCP: Maame Osorio CONSTRUCTION COST ESTIMATOR with [facility] Preferred Pharmacy: [facility], preferred Insurance: [place] medicare Prescription Benefit: yes LNOK: Loretta Mcdonald, sister in law (entered in chart, was not listed on demographics) Living Arrangements/DME: one story home, see PT/OT eval for details HHC: none Patient DC goals: SNF SW Referral: SNF referral. Call to Mirna Savage to update. DC PLAN: anticipate SNF Jonah DOUGLAS RN ACM
--- NOTE | 2018-10-07 12:24 | ECHOCS_ITS ---
Reason For Study: CAD/ASHD Procedure This was a 2D Doppler, Color Flow transthoracic echocardiogram. The study was technically difficult. Due to body habitus and PT unable to lie in left lateral decubitus position. Exam performed supine. Contrast injection was performed. Exam performed portable in patient room. Left Ventricle Normal LV size. Left ventricular systolic function is normal. The estimated ejection fraction is 65 %. Unable to assess diastolic dysfunction. No regional wall motion abnormalities noted. Right Ventricle Normal RV size. Normal systolic function. Atria The left atrium is mildly enlarged. Normal right atrium. No doppler evidence for ASD. Mitral Valve There is moderate mitral annular calcification. Extension of the mitral annular calcification onto the posterior mitral valve leaflet. Trivial mitral valve insufficiency. Tricuspid Valve Normal tricuspid valve. Trivial tricuspid valve insufficiency. Unable to estimate RV systolic pressure/pulmonary artery pressure due to technically difficult study. Aortic Valve Trisinus/trileaflet aortic valve. Mild diffuse aortic valve thickening. Mild diffuse aortic valve calcification. Moderate aortic stenosis. Trivial aortic valve insufficiency. Pulmonic Valve The pulmonic valve is not well visualized. Trivial pulmonic valve insufficiency. Great Vessels Normal sized aortic root. Calcified aortic root. Pericardium/Pleural No pericardial effusion. Medication Diluted definity 3.5ml given slow IV push to enhance endocardial definition. MMode/2D Measurements & Calculations LVIDd: 4.2 cm IVSd: 1.2 cm LVOT diam: 2.3 cm LVIDs: 2.7 cm LVPWd: 1.5 cm RVDd: 3.6 cm FS: 34.5 % LVOT area: 4.2 cm2 Ao root diam: 3.6 cm LAV(MOD-bp): 60.2 ml LA A4 area: 19.5 cm2 LAV(MOD-bp) Indexed: 26.2 ml/m2 LAV(MOD-sp2): 72.5 ml LAV(MOD-sp4): 46.0 ml LA dimension(2D): 3.8 cm RA A4 area: 13.2 cm2 Doppler Measurements & Calculations MV E max caitlyn: 91.8 cm/sec Ao V2 max: 361.6 cm/sec LV V1 max: 122.3 cm/sec MV A max caitlyn: 139.8 cm/sec Ao max P.3 mmHg LV V1 max P.0 mmHg MV E/A: 0.66 Ao V2 mean: 284.1 cm/sec LV V1 mean P.7 mmHg Ao mean P.2 mmHg LV V1 mean: 93.0 cm/sec Ao V2 VTI: 81.7 cm LV V1 VTI: 30.8 cm NANCY(I,D): 1.6 cm2 NANCY(V,D): 1.4 cm2 SV(LVOT): 129.9 ml PA V2 max: 96.4 cm/sec Interpretation Summary The study was technically difficult. Contrast injection was performed. Left ventricular systolic function is normal. The estimated ejection fraction is 65 %. The left atrium is mildly enlarged. There is moderate mitral annular calcification. Extension of the mitral annular calcification onto the posterior mitral valve leaflet. Trivial mitral valve insufficiency. Trivial tricuspid valve insufficiency. Moderate aortic stenosis. Trivial aortic valve insufficiency. Trivial pulmonic valve insufficiency. Calcified aortic root. Unable to estimate RV systolic pressure/pulmonary artery pressure due to technically difficult study. Unable to assess diastolic dysfunction. Ordering Physician: Melva Parkinson Referring Physician: Bulmaro Person Performed By: Farzaneh Riley, KATHY, RVT
[2018-10-07 12:56] LABS: Bedside Glucose 96 mg/dL (70-110)
--- NOTE | 2018-10-07 13:34 | CM.ED ---
Addendum entered by Dorys Peters 10/07/18 13:49: SOCIAL WORK NOTE PLACED CALL TO [facility] AND SPOKE WITH MIRANDA IN ADMISSIONS. MIRANDA VERIFIES THAT THEY HAVE AVAILABLE MALE SKILLED BEDS AND TO FAX THE REFERRAL TO [phone] FOR REVIEW. WILL AWAIT CONFIRMATION FROM MIRANDA THAT THEY CAN ACCEPT AND WILL INITIATE PRE-CERT. SW TO CONTINUE TO FOLLOW AND ASSIST. PLAN: SNF PENDING ACCEPTANCE AND PRE-CERT. ERIC Hicks, MARIBEL Original Note: SOCIAL WORK NOTE FACE TO FACE WITH PT TO DISCUSS SNF PLACEMENT OPTIONS. INTRODUCED SELF AND ROLE AT [facility]. PT IS ALERT AND ORIENTED X3 AND ABLE TO PARTICIPATE IN ASSESSMENT. PT STATES THAT HE DOES WANT TO GO TO A SNF FOR REHABILITATION. STATES HE WOULD LIKE TO LOOK AT FACILITIES IN [place]. INFORM THAT THIS INTERNAL MEDICINE NURSE PRACTITIONER PRINTED OUT A LIST OF FACILITIES BASED ON DISTANCE FROM HIS HOME IN [place]. PT STATES HE WILL REVIEW AND CONTACT THIS INTERNAL MEDICINE NURSE PRACTITIONER TO COME OUT TO THE HOME. EXPLAIN THAT IF WE SEEK PLACEMENT THE PT WOULD BE DISCHARGED TO THAT FACILITY FROM [facility] AT DISCHARGE. PT EXPRESSES UNDERSTANDING. DENIES HAVING FAMILY OUT THERE, AND REPORTS TO HAVE FAMILY IN [place]. INQUIRE IF HE WOULD LIKE TO STAY WITHIN [facility] AND PT DECLINES AND CONTINUES TO STATE HE WOULD LIKE TO BE IN THE [place] AREA. EXPLAIN THAT THIS INTERNAL MEDICINE NURSE PRACTITIONER DOES NOT KNOW OF ANY FACILITIES IN [place], BUT THERE ARE SOME IN THE SURROUNDING AREAS OF [facility]. PT IS AGREEABLE TO HAVE THIS INTERNAL MEDICINE NURSE PRACTITIONER FAX REFERRALS TO 4 OR 5 [facility] FACILITIES IN [place]. SW TO CONTINUE TO FOLLOW AND ASSIST WITH DISCHARGE PLANNING. PLAN: SNF PENDING ACCEPTANCE AND PRE-CERT. ERIC Hicks LISW
--- NOTE | 2018-10-07 16:12 | CM.ED ---
SOCIAL WORK NOTE CALL FROM MIRANDA WITH [facility]. STATES THAT HER DON IS NOT IN TODAY AND SHE WILL CONTACT SW REGARDING THEIR DETERMINATION TOMORROW. CONCERNS WITH PT'S RENAL STATUS AND WHETHER HE WILL NEED DIALYSIS, BUT STATES THEY THINK THEY COULD MANAGE HIS CARE. INFORM THAT [facility], WILL COVER TOMORROW AND PROVIDED WITH DIRECT NUMBER FOR CONTACT. SW TO FAX ANY CLINICAL UPDATES TOMORROW FOR FURTHER REVIEW. PLAN: SNF PENDING ACCEPTANCE AND PRE-CERT. ERIC Hicks, MARIBEL
[2018-10-07 16:14] VITALS: BP 142/111; PULSE 60; RESP 18; TEMP 36.9; O2SAT 95
[2018-10-07 19:35] LABS: Bedside Glucose 114 mg/dL (70-110)
[2018-10-07 20:57] VITALS: BP 154/82; PULSE 98; RESP 18; TEMP 36.6; O2SAT 98
[2018-10-07 21:56] LABS: Bedside Glucose 121 mg/dL (70-110)
[2018-10-08 02:20] VITALS: BP 148/64; PULSE 59; RESP 18; TEMP 36.6; O2SAT 97
[2018-10-08] MEDS: 0.9% Normal Saline 1,000 ML 150 ML IV ×2 (02:29→10:08)
[2018-10-08] MEDS: Tacrolimus Anhydrous 1 MG Capsule 3 MG PO ×3 (05:36→21:03)
[2018-10-08] MEDS: Nystatin Powder 15gm Bottle 1 APPLIC TOPICAL ×3 (05:37→21:03)
[2018-10-08] MEDS: Heparin Injection (Vial) 5,000 UNIT/ML VIAL 5000 UNIT SC ×3 (05:37→21:03)
[2018-10-08 06:17] LABS: Absolute Lymphocyte Count 1.26 X10^3/ul (0.83-4.51); Absolute Neutrophil Count 3.8 X10^3/uL (2.0-7.7); Basophil# 0.01 X10^3/uL; Basophil% 0.2 % (0-1); Eosinophil# 0.15 X10^3/uL; Eosinophils% 2.6 % (0-5); Hematocrit 27.8 % (40-54); Hemoglobin 8.7 g/dl (13.0-16.5); Lymphocyte # 1.26 X10^3/ul (4.0); Mean Corp Hgb Conc 31.3 g/gl (32-36); Mean Corpuscular Hgb 32.5 pg (27.0-32.0); Mean Corpuscular Volume 103.7 fL (80-94); Mean Platelet Vol. 11.4 fl (6.2-12.0); Monocyte# 0.52 X10^3/uL; Monocyte% 9.1 % (0-10); Neutrophil # 3.75 X10^3/uL (2.7-7.7); Neutrophil % 65.4 % (47-70); Platelet Count 96 K/mm3 (150-450); RBC Distribution Width CV 13.8 % (11.6-14.6); RBC Distribution Width SD 52.1 fl (35.1-43.9); Red Blood Count 2.68 M/mm3 (4.6-6.2); White Blood Count 5.7 K/mm3 (4.4-11.0)
[2018-10-08 06:30] LABS: POSITIVE COUNT NO; POSITIVE DIFFERENTIAL NO; POSITIVE MORPHOLOGY NO
[2018-10-08 06:35] LABS: Anion Gap 4 (5-15); BUN 50 mg/dL (7-18); BUN/Creat Ratio 32.7 RATIO (10-20); CPK Total, Creatine Kinase 632 U/L (39-308); Calcium,Total 8.7 mg/dL (8.5-10.1); Chloride 116 mmol/L (98-107); Creatinine, Serum 1.53 mg/dL (0.70-1.30); EST Glomerular Filtration Rate 48 mL/min (>60); Est Glom Filt Rate - Afr Amer 58 mL/min (>60); Estimated Creatinine Clearance 47.05 ml/min; Glucose 101 mg/dL (74-106); Potassium 4.5 mmol/L (3.5-5.1); Sodium Level 145 mmol/L (136-145)
[2018-10-08 06:50] LABS: Bedside Glucose 98 mg/dL (70-110)
[2018-10-08 07:58] VITALS: BP 136/66; PULSE 70; RESP 18; TEMP 37.1; O2SAT 99
[2018-10-08 08:05] VITALS: PULSE 60
[2018-10-08] MEDS: predniSONE 5 MG Tablet PO (08:07)
[2018-10-08] MEDS: Folic Acid/Vitamin B Comp W-C 1 Capsule 1 CAP PO (08:07)
[2018-10-08] MEDS: Acetaminophen 325 MG Tablet 650 MG PO ×2 (08:07→23:04)
--- NOTE | 2018-10-08 09:57 | PCM.PN.HOSP ---
Patient Problems: Active and Suspected Problems (Last Updated 10/06/18 @ 17:39 by Bulmaro Person DO) Rhabdomyolysis (Acute) Failure to thrive (Acute) Subjective: Patient seen and examined. He had an uneventful night and has no complaints. Review of systems otherwise negative. Labs and vitals reviewed. Creatinine kinase has trended down to on 613 and creatinine is also down to 1.53. Hemoglobin is down to 8.7 from 11.9 but I think this is likely due to hemodilution as WBC and platelet counts have also fallen. Patient is open to placement as he cannot take care of himself at home. Vitals/I&O's: Vital Signs Temp Pulse Resp BP Pulse Ox 98.8 F 60 18 136/66 H 99 10/08/18 07:58 10/08/18 08:05 10/08/18 07:58 10/08/18 07:58 10/08/18 07:58 Oxygen Delivery Method Room Air Weight: 251 lb 15.814 oz Body Mass Index (BMI) 36.1 Intake and Output for Last 24 Hours 10/06/18 10/07/18 10/08/18 23:59 23:59 23:59 Intake Total 5800 / 5800 750 / 750 Balance 5800 / 5800 750 / 750 General: Alert, Oriented x3, Cooperative, No apparent distress HEENT: Atraumatic, PERRLA, EOMI, Normocephalic Oral: Moist Mucosa Neck: Supple, No JVD, Negative Carotid Bruits Lungs: Clear to auscultation, Normal air movement, No rhonchi, No wheeze, No rales Cardiovascular: Regular rate, Regular Rhythm, Normal S1, Normal S2, No murmurs Abdomen: Bowel Sounds Present, Soft, Non Tender, Non-Distended, No Hepato-splenomegaly Extremities: No clubbing, No cyanosis, No edema, Capillary Refill Less than 3 Seconds Skin: - - has some excoriations on upper extremities, which are resolving Musculoskeletal: No Tenderness to Palpation of Joints or Extremities Lymphatic: No Cervical, Supraclavicular, or Inguinal Adenopathy Neurological: Cranial nerves II-XII grossly intact, Neuro grossly intact Psych/Mental Status: Normal Affect, Appropriate, Alert and oriented to time, place, person, mood and affect Laboratory Results 10/07/18 12:43: POC Glucose 96 10/07/18 17:34: POC Glucose 114 H 10/07/18 21:29: POC Glucose 121 H 10/08/18 05:35: WBC 5.7, RBC 2.68 L, Hgb 8.7 L, Hct 27.8 L, MCV 103.7 H, MCH 32.5 H, MCHC 31.3 L, RDW 13.8, RDW Differential 52.1 H, Plt Count 96 L, MPV 11.4, Immature Gran % (Auto) 0.700, Neut % (Auto) 65.4, Lymph % (Auto) 22.0, Stark % (Auto) 9.1, Eos % (Auto) 2.6, Baso % (Auto) 0.2, Absolute Neuts (auto) 3.8, Absolute Lymphs (auto) 1.26, Total Counted Not Reportable 10/08/18 05:35: Sodium 145, Potassium 4.5, Chloride 116 H, Carbon Dioxide 25.0, Anion Gap 4 L, BUN 50 H, Creatinine 1.53 H, Estim Creat Clear Calc 47.05, Est GFR (MDRD) Af Amer 58 L, Est GFR (MDRD) Non-Af 48 L, BUN/Creatinine Ratio 32.7 H, Glucose 101, Calcium 8.7, Total Creatine Kinase 632 H 10/08/18 06:44: POC Glucose 98 Current Medications Acetaminophen (Tylenol) 650 mg PO Q6H PRN PRN PRN Reason: Mild Pain (1-3)/Temp > 100.7 F Last Admin: 10/08/18 08:07 Dose: 650 mg Dextrose (D50w Syringe) 0 gm IV X1 PRN; Protocol PRN Reason: Hypoglycemia Docusate Sodium (Colace) 100 mg PO DAILY [facility] Last Admin: 10/07/18 10:36 Dose: 100 mg Glucagon () 1 mg IM .X1 PRN PRN Reason: Hypoglycemia Heparin Sodium (Porcine) (Heparin Na) 5,000 unit SC Q8 [facility] Last Admin: 10/08/18 05:37 Dose: 5,000 unit Sodium Chloride () 1,000 mls @ 150 mls/hr IV .Q6H40M [facility] Last Admin: 10/08/18 02:29 Dose: 150 mls/hr Levetiracetam (Keppra Tablet) 1,000 mg PO BID [facility] Last Admin: 10/07/18 21:30 Dose: 1,000 mg Magnesium Hydroxide (Milk Of Magnesia) 30 ml PO DAILY PRN PRN PRN Reason: Constipation Multivit/Ca Carb/B Cmplx/FA/Prenat (Nephrocaps, Renaphro) 1 capsule PO DAILY@0800 [facility] Last Admin: 10/08/18 08:07 Dose: 1 capsule Nystatin (Mycostatin Powder) 1 applic TOPICAL TID [facility]; Protocol Last Admin: 10/08/18 05:37 Dose: 1 applicatio Ondansetron HCl (Zofran) 4 mg IV Q8H PRN PRN PRN Reason: NAUSEA Prednisone () 5 mg PO DAILY@0800 [facility] Last Admin: 10/08/18 08:07 Dose: 5 mg Sodium Chloride () 5 - 15 ml IV UD PRN PRN Reason: SALINE FLUSH Tacrolimus (Prograf) 3 mg PO TID [facility] Last Admin: 10/08/18 05:36 Dose: 3 mg Tamsulosin HCl (Flomax) 0.4 mg PO DAILY [facility] Last Admin: 10/07/18 10:40 Dose: Not Given Medical Necessity - Tobacco Use Smoking Status: Never smoker Tobacco Use: Non-smoker Assessment/Plan All Active Problems (Last Updated 10/06/18 @ 17:39 by Bulmaro Person DO) Rhabdomyolysis (Acute) Failure to thrive (Acute) 1. Rhabdomyolysis due to mechanical falls CPK was 1518 on admission, has trended down 632. will cut down on IVF administration Being hydrated with IV fluids. Will monitor CPK. 2. Debility and failure to thrive due to mechanical falls Has been falling frequently at home. PT OT consulted. will need placement 3. CKD status post renal transplant: Had a renal transplant last year. Currently stable. Creatinine is 1.53 was 1.77 on admission. Follows up at [place] transplant unit. on tacrolimus and prednisone 4. Hyperkalemia: Potassium was 5.2 on admission and is now down to 4.5. Will monitor. 5. Indeterminate troponin: Troponin was 0.078 on admission and is now up to 0.095. Has no complaints of chest pain. EKG showed no acute ST changes. This is likely due to CKD. Will monitor. 2D echo showed normal LVSF with EF of 65% 6. Thrombocytopenia: platelets are 96 today; were 98 on admission. baseline from 03/06/18 was 166. Will monitor DVT prophylaxis; heparin; if platelets drop further, will consider stopping Disposition: awaiting placement Code Visit Inpatient E&M: 77374 Subs Hosp L2
--- NOTE | 2018-10-08 10:02 | PN_ITS ---
Patient Problems: Active and Suspected Problems (Last Updated 10/06/18 @ 17:39 by Bulmaro Person DO) Rhabdomyolysis (Acute) Failure to thrive (Acute) Subjective: Patient seen and examined. He had an uneventful night and has no complaints. Review of systems otherwise negative. Labs and vitals reviewed. Creatinine kinase has trended down to on 613 and creatinine is also down to 1.53. Hemoglobin is down to 8.7 from 11.9 but I think this is likely due to hemodilution as WBC and platelet counts have also fallen. Patient is open to placement as he cannot take care of himself at home. Vitals/I&O's: Vital Signs Temp Pulse Resp BP Pulse Ox 98.8 F 60 18 136/66 H 99 10/08/18 07:58 10/08/18 08:05 10/08/18 07:58 10/08/18 07:58 10/08/18 07:58 Oxygen Delivery Method Room Air Weight: 251 lb 15.814 oz Body Mass Index (BMI) 36.1 Intake and Output for Last 24 Hours 10/06/18 10/07/18 10/08/18 23:59 23:59 23:59 Intake Total 5800 / 5800 750 / 750 Balance 5800 / 5800 750 / 750 General: Alert, Oriented x3, Cooperative, No apparent distress HEENT: Atraumatic, PERRLA, EOMI, Normocephalic Oral: Moist Mucosa Neck: Supple, No JVD, Negative Carotid Bruits Lungs: Clear to auscultation, Normal air movement, No rhonchi, No wheeze, No rales Cardiovascular: Regular rate, Regular Rhythm, Normal S1, Normal S2, No murmurs Abdomen: Bowel Sounds Present, Soft, Non Tender, Non-Distended, No Hepato- splenomegaly Extremities: No clubbing, No cyanosis, No edema, Capillary Refill Less than 3 Seconds Skin: - - has some excoriations on upper extremities, which are resolving Musculoskeletal: No Tenderness to Palpation of Joints or Extremities Lymphatic: No Cervical, Supraclavicular, or Inguinal Adenopathy Neurological: Cranial nerves II-XII grossly intact, Neuro grossly intact Psych/Mental Status: Normal Affect, Appropriate, Alert and oriented to time, place, person, mood and affect Laboratory Results 10/07/18 12:43: POC Glucose 96 10/07/18 17:34: POC Glucose 114 H 10/07/18 21:29: POC Glucose 121 H 10/08/18 05:35: WBC 5.7, RBC 2.68 L, Hgb 8.7 L, Hct 27.8 L, MCV 103.7 H, MCH 32.5 H, MCHC 31.3 L, RDW 13.8, RDW Differential 52.1 H, Plt Count 96 L, MPV 11.4, Immature Gran % (Auto) 0.700, Neut % (Auto) 65.4, Lymph % (Auto) 22.0, [place] % (Auto) 9.1, Eos % (Auto) 2.6, Baso % (Auto) 0.2, Absolute Neuts (auto) 3.8, Absolute Lymphs (auto) 1.26, Total Counted Not Reportable 10/08/18 05:35: Sodium 145, Potassium 4.5, Chloride 116 H, Carbon Dioxide 25.0, Anion Gap 4 L, BUN 50 H, Creatinine 1.53 H, Estim Creat Clear Calc 47.05, Est GFR (MDRD) Af Amer 58 L, Est GFR (MDRD) Non-Af 48 L, BUN/Creatinine Ratio 32.7 H , Glucose 101, Calcium 8.7, Total Creatine Kinase 632 H 10/08/18 06:44: POC Glucose 98 Current Medications Acetaminophen (Tylenol) 650 mg PO Q6H PRN PRN PRN Reason: Mild Pain (1-3)/Temp > 100.7 F Last Admin: 10/08/18 08:07 Dose: 650 mg Dextrose (D50w Syringe) 0 gm IV X1 PRN; Protocol PRN Reason: Hypoglycemia Docusate Sodium (Colace) 100 mg PO DAILY [facility] Last Admin: 10/07/18 10:36 Dose: 100 mg Glucagon () 1 mg IM .X1 PRN PRN Reason: Hypoglycemia Heparin Sodium (Porcine) (Heparin Na) 5,000 unit SC Q8 [facility] Last Admin: 10/08/18 05:37 Dose: 5,000 unit Sodium Chloride () 1,000 mls @ 150 mls/hr IV .Q6H40M [facility] Last Admin: 10/08/18 02:29 Dose: 150 mls/hr Levetiracetam (Keppra Tablet) 1,000 mg PO BID [facility] Last Admin: 10/07/18 21:30 Dose: 1,000 mg Magnesium Hydroxide (Milk Of Magnesia) 30 ml PO DAILY PRN PRN PRN Reason: Constipation Multivit/Ca Carb/B Cmplx/FA/Prenat (Nephrocaps, Renaphro) 1 capsule PO DAILY@0800 [facility] Last Admin: 10/08/18 08:07 Dose: 1 capsule Nystatin (Mycostatin Powder) 1 applic TOPICAL TID [facility]; Protocol Last Admin: 10/08/18 05:37 Dose: 1 applicatio Ondansetron HCl (Zofran) 4 mg IV Q8H PRN PRN PRN Reason: NAUSEA Prednisone () 5 mg PO DAILY@0800 [facility] Last Admin: 10/08/18 08:07 Dose: 5 mg Sodium Chloride () 5 - 15 ml IV UD PRN PRN Reason: SALINE FLUSH Tacrolimus (Prograf) 3 mg PO TID [facility] Last Admin: 10/08/18 05:36 Dose: 3 mg Tamsulosin HCl (Flomax) 0.4 mg PO DAILY [facility] Last Admin: 10/07/18 10:40 Dose: Not Given Medical Necessity - Tobacco Use Smoking Status: Never smoker Tobacco Use: Non-smoker Assessment/Plan All Active Problems (Last Updated 10/06/18 @ 17:39 by Bulmaro Person DO) Rhabdomyolysis (Acute) Failure to thrive (Acute) 1. Rhabdomyolysis due to mechanical falls * CPK was 1518 on admission, has trended down 632. * will cut down on IVF administration * Being hydrated with IV fluids. * Will monitor CPK. * 2. Debility and failure to thrive due to mechanical falls * Has been falling frequently at home. * PT OT consulted. * will need placement 3. CKD status post renal transplant: * Had a renal transplant last year. * Currently stable. * Creatinine is 1.53 was 1.77 on admission. * Follows up at [facility] transplant unit. * on tacrolimus and prednisone * 4. Hyperkalemia: Potassium was 5.2 on admission and is now down to 4.5. Will monitor. 5. Indeterminate troponin: * Troponin was 0.078 on admission and is now up to 0.095. * Has no complaints of chest pain. EKG showed no acute ST changes. * This is likely due to CKD. Will monitor. * 2D echo showed normal LVSF with EF of 65% * 6. Thrombocytopenia: platelets are 96 today; were 98 on admission. baseline from 03/06/18 was 166. Will monitor DVT prophylaxis; heparin; if platelets drop further, will consider stopping Disposition: awaiting placement Code Visit Inpatient E&M: 06134 Subs Hosp L2
[2018-10-08] MEDS: levETIRAcetam 1,000 MG Tablet 1000 MG PO ×2 (10:52→21:03)
[2018-10-08] MEDS: Tamsulosin HCl 0.4 MG Capsule PO (10:52)
[2018-10-08] MEDS: Docusate Sodium 100 MG Capsule PO (10:52)
--- NOTE | 2018-10-08 11:02 | CASEMGMT ---
RAMONA called [facility], message left for Mar in admissions and updates faxed. EVE Martinez, FIRST HELPER
--- NOTE | 2018-10-08 13:40 | CASEMGMT ---
RAMONA completed hospital exemption in [place], just needs submitted. SW placed transport forms on the chart. RAMONA called [facility]([phone]), spoke w/Mar in admissions. RAMONA gave Mar GREENE Mirna Savage' information to call in the event she gets precert after this RAMONA leaves for the day, and Mar does think she will get precert today. RAMONA also asked for an alternate fax as the [phone] did not work earlier. The alternate fax is [phone]. RAMONA refaxed updates to the [phone] number. RAMONA spoke w/pt, let him know [facility] can take pt and we are waiting for precert, this may be attained today, and if not today then tomorrow. Pt states understanding. RAMONA left message for Mirna to update her. EVE Martinez, ADMINISTRATIVE NURSING SUPERVISOR
[2018-10-08 14:27] VITALS: BP 154/57; PULSE 78; RESP 18; TEMP 36.8; O2SAT 99
--- NOTE | 2018-10-08 15:15 | CHAPLAIN ---
Type of Pastoral Visit _x__ Initial Visit ___ Follow-up Visit ___ On-call Visit ___ General Patient Visit ___ Spiritual Assessment ___ Family Conference ___ Bereavement ___ Rapid Response ___ Code Blue ___ Other (describe below) Pastoral Care Referral From _x__ Patient ___ Family ___ Nurse ___ Physician ___ Network Technical Analyst ___ Public Health Training Assistant ___ Other (describe below) Sacrament/Intervention _x__ Active listening ___ Anointing ___ Methodist _x__ Bereavement ___ Communion _x__ Saloni exploration ___ _x__ Life review _x__ Prayer ___ Reconciliation ___ Sacrament of Sick _x__ Supportive presence ___ Wedding ___ Other (describe below) Pastoral Comments patient described mounting issues in personal life and health; spouse of pt less than 9 months ago and he is grieving; pt has significant challenges in health and is realizing that he must make changes in where he lives; pt says that family is supportive; pt has deep connection to the Anabaptism saloni and is regular in attendance in [facility]; pt would like to be on Anabapt[employer] list for communion
--- NOTE | 2018-10-08 15:31 | CASEMGMT ---
Addendum entered by Mirna Savage 10/08/18 16:17: RAMONA received message from Mar stating she is still waiting for pre-cert and will likely get pre-cert tomorrow. SW to follow up with Mar tomorrow. Original Note: Social Work Note SW received call from Mar at [facility] stating she is still awaiting approval from insurance and that it may be complex to get approval as pt is currently on Prograf which is expensive. Mar states she is waiting for the insurance to carve out the expensive medication. Mar asked if pt could be placed on Tacrolimus, the generic form of Prograf. RAMONA reviewed current medications and home medication list and Tacrolimus is listed on medication list. RAMONA placed a call to Mar at [facility] and asked how she needs medication to be written as it appears Tacrolimus is already listed as medication for pt. RAMONA faxed order for Tacrolimus to Iban at [facility]. RAMONA to continue to follow along. Plan: [facility] pending pre-cert Mirna Savage NECKTIE TURNER, SUPERVISOR PARTICLEBOARD
[2018-10-08 16:21] LABS: Bedside Glucose 141 mg/dL (70-110)
[2018-10-08 21:17] VITALS: BP 118/73; PULSE 68; RESP 18; TEMP 37.2; O2SAT 98
[2018-10-08 21:20] LABS: Bedside Glucose 116 mg/dL (70-110)
[2018-10-09 02:08] VITALS: BP 152/83; PULSE 68; RESP 16; TEMP 36.8; O2SAT 95
[2018-10-09] MEDS: Heparin Injection (Vial) 5,000 UNIT/ML VIAL 5000 UNIT SC (05:26)
[2018-10-09] MEDS: Tacrolimus Anhydrous 1 MG Capsule 3 MG PO ×2 (05:26→13:12)
[2018-10-09] MEDS: Nystatin Powder 15gm Bottle 1 APPLIC TOPICAL ×2 (05:26→13:12)
[2018-10-09 06:17] LABS: Absolute Lymphocyte Count 0.95 X10^3/ul (0.83-4.51); Absolute Neutrophil Count 3.1 X10^3/uL (2.0-7.7); Basophil# 0.01 X10^3/uL; Basophil% 0.2 % (0-1); Eosinophils% 4.1 % (0-5); Hemoglobin 9.1 g/dl (13.0-16.5); Lymphocyte # 0.95 X10^3/ul (4.0); Lymphocyte % 19.5 % (19-41); Mean Corp Hgb Conc 31.4 g/gl (32-36); Mean Corpuscular Hgb 32.7 pg (27.0-32.0); Mean Corpuscular Volume 104.3 fL (80-94); Mean Platelet Vol. 11.1 fl (6.2-12.0); Monocyte# 0.54 X10^3/uL; Monocyte% 11.1 % (0-10); Neutrophil # 3.11 X10^3/uL (2.7-7.7); Neutrophil % 64.1 % (47-70); Platelet Count 112 K/mm3 (150-450); RBC Distribution Width CV 13.8 % (11.6-14.6); RBC Distribution Width SD 51.9 fl (35.1-43.9); Red Blood Count 2.78 M/mm3 (4.6-6.2); White Blood Count 4.9 K/mm3 (4.4-11.0)
[2018-10-09 06:26] LABS: POSITIVE COUNT NO; POSITIVE DIFFERENTIAL NO; POSITIVE MORPHOLOGY NO
[2018-10-09 06:45] LABS: Bedside Glucose 94 mg/dL (70-110)
[2018-10-09 06:49] LABS: Anion Gap 3 (5-15); BUN 42 mg/dL (7-18); BUN/Creat Ratio 30.2 RATIO (10-20); CPK Total, Creatine Kinase 308 U/L (39-308); Calcium,Total 8.8 mg/dL (8.5-10.1); Chloride 118 mmol/L (98-107); Creatinine, Serum 1.39 mg/dL (0.70-1.30); EST Glomerular Filtration Rate 54 mL/min (>60); Est Glom Filt Rate - Afr Amer 65 mL/min (>60); Estimated Creatinine Clearance 51.79 ml/min; Glucose 98 mg/dL (74-106); Potassium 4.5 mmol/L (3.5-5.1); Sodium Level 145 mmol/L (136-145)
[2018-10-09] MEDS: Acetaminophen 325 MG Tablet 650 MG PO (07:43)
[2018-10-09] MEDS: predniSONE 5 MG Tablet PO (07:44)
[2018-10-09] MEDS: Folic Acid/Vitamin B Comp W-C 1 Capsule 1 CAP PO (07:44)
[2018-10-09 08:10] VITALS: BP 165/68; PULSE 72; RESP 16; TEMP 36.9; O2SAT 95
[2018-10-09 09:00] VITALS: RESP 18
--- NOTE | 2018-10-09 10:23 | CASEMGMT ---
Addendum entered by Aga Chin 10/09/18 11:51: SW received a message back from Mar at [facility] stating they have precert and can take pt today. RAMONA completed hospital exemption in the [employer] system, faxed this with all discharge instructions to [facility]. RAMONA set up a 1:30 pm ambulance with [facility] to take pt to [facility]. RAMONA let pt, RN here, and Mar know at [facility](via voicemail) time of pickup. Pt is in agreement with plan and time. No further needs, pt to [facility] today. EVE Martinez, ERIC Original Note: RAMONA called [facility] and left a message for Mar inquiring about the precert. EVE Martinez, COMPONENT ENGINEER
[2018-10-09] MEDS: Tamsulosin HCl 0.4 MG Capsule PO (10:58)
[2018-10-09] MEDS: Docusate Sodium 100 MG Capsule PO (10:58)
[2018-10-09] MEDS: levETIRAcetam 1,000 MG Tablet 1000 MG PO (10:58)
--- NOTE | 2018-10-09 11:36 | PCM.TXEXTCAR ---
- Diet 10/06/18 17:50 Diet: Renal: 60 gm protein Food consistency:: Regular Liquid Consistency:: Regular/Thin - Routine Orders/Code Status Enema Type: Fleetz Enema Frequency: Daily PRN Suppository Type: Dulcolax 10mg Suppository Frequency: Daily PRN O2 Frequency: PRN Keep PO Greater than or Equal to (%): 90 Code Status: Full Code - Wound(s) right arm Wound Type: Abrasion left knee Wound Type: Abrasion Right upper FA Wound Type: Skin Tear right elbow Wound Type: Skin Tear - Therapies Weight Bearing: Weight bearing as tolerated Physical Therapy: Eval and Treat Occupational Therapy: Eval and Treat - Allergies/Procedures Done in Hospital Allergies/Adverse Reactions: Allergies No Known Allergies Allergy (Verified 10/06/18 13:02) Procedures: None - Type of Care/Length of Stay Estimated LOS: Convalescent Care Less Than 30 days Type of Care Needed: Skilled Rehab Potential: Fair Prognosis: Fair - Additional Orders/Day of Discharge Day of Discharge: 10/09/18 - Follow Up Care Primary Care Physician: Maame Osorio [Primary Care Provider] - Please follow up with your Primary Care Physician in: one week When: please follow up with salesforce specialist and transplant team at [facility] in 1-2 weeks
--- NOTE | 2018-10-09 11:39 | TREXTCAR_ITS ---
- Diet 10/06/18 17:50 Diet: Renal: 60 gm protein Food consistency:: Regular Liquid Consistency:: Regular/Thin - Routine Orders/Code Status Enema Type: Fleetz Enema Frequency: Daily PRN Suppository Type: Dulcolax 10mg Suppository Frequency: Daily PRN O2 Frequency: PRN Keep PO Greater than or Equal to (%): 90 Code Status: Full Code - Wound(s) right arm Wound Type: Abrasion left knee Wound Type: Abrasion Right upper FA Wound Type: Skin Tear right elbow Wound Type: Skin Tear - Therapies Weight Bearing: Weight bearing as tolerated Physical Therapy: Eval and Treat Occupational Therapy: Eval and Treat - Allergies/Procedures Done in Hospital Allergies/Adverse Reactions: Allergies No Known Allergies Allergy (Verified 10/06/18 13:02) Procedures: None - Type of Care/Length of Stay Estimated LOS: Convalescent Care Less Than 30 days Type of Care Needed: Skilled Rehab Potential: Fair Prognosis: Fair - Additional Orders/Day of Discharge Day of Discharge: 10/09/18 - Follow Up Care Primary Care Physician: Maame Osorio [Primary Care Provider] - Please follow up with your Primary Care Physician in: one week When: please follow up with sample carrier and transplant team at [facility] in 1-2 weeks
[2018-10-09 11:45] LABS: Bedside Glucose 133 mg/dL (70-110)
[2018-10-09 13:22] VITALS: BP 158/66; PULSE 74; RESP 18; TEMP 36.8; O2SAT 98
--- NOTE | 2018-10-09 16:11 | PCM.DC.SUM ---
Discharge Date and Diagnosis Date of Admission: 10/06/18 Date of Discharge: 10/09/18 - Primary Discharge Diagnosis rhabdomyolysis debility due to mechanical falls hyperkalemia acute metabolic encephalopathy dehydration - Secondary Discharge Diagnosis ESRD s/p renal transplant Hospital Course and Treatment Imaging Results: Diagnostic Data Brain CT 10/06/18 13:32 IMPRESSION: Chronic involutional changes of the brain. Electronically Signed: Kareem Luorogerskellee, at 14:35 EDT , Service support , Chest X-Ray 10/06/18 13:32 IMPRESSION: Blunting of both costophrenic angles with mild degree of bibasilar atelectasis. Cardiomegaly. Distended colon. Electronically Signed: Kareem Luojoan, at 14:15 EDT , Service support , none Operations: None Procedures: None Summary of Care Provided: The patient is a 67 year old M with past medical history as listed. He was admitted on 10/06/2018 with a complaint of intermittent falls over the past few months. He had several falls during the week prior to admission and fell on the day of admission. He was unable to take care of himself and at time of presentation, was confused and so his sister in law gave much of the history. On admission, he was found to have rhabdomyolysis with CPK of 1518. He was admitted and managed for rhabdomyolysis due to mechanical falls, general debility due to mechanical falls and hyperkalemia as his potassium was also elevated on admission. He was also managed for acute metabolic encephalopathy likely due to dehydration was hydrated with IV fluids. CPK gradually trended down and came down to 300 on day of discharge. Hyperkalemia also resolved and potassium was 4.5 on day of admission. Patient had indeterminate troponins with a peak of around 0.095 but he had no complaints of chest pain and EKG showed no acute ST changes and this was thought to be due to renal impairment from CKD and also dehydration. He had a 2D echo which showed normal left ventricular systolic function with EF of 65%. Patient remained stable and PT OT was consulted. He was scheduled for [facility] facility and was discharged to assisted on 10/09/2018. He is to follow-up with his primary care doctor and ammunition storage superintendent and transplant team in [facility]. Patient seen and examined prior to discharge. He felt much better and had no complaints. Review of systems otherwise negative. Labs and vitals reviewed. Home medications reviewed and reconciled. o/e: Vital Signs Height 5 ft 10.08 in Weight: 251 lb 15.814 oz Weight in Pounds 252.0 lbs Pulse Ox 98 Temperature 98.3 F Pulse Rate 74 Respiratory Rate 18 Blood Pressure 158/66 Blood Pressure Position Semi-Fowlers [] General: Alert, Oriented x3, Cooperative, No apparent distress HEENT: Atraumatic, PERRLA, EOMI, Normocephalic Oral: Moist Mucosa Neck: Supple, No JVD, Negative Carotid Bruits Lungs: Clear to auscultation, Normal air movement, No rhonchi, No wheeze, No rales Cardiovascular: Regular rate, Regular Rhythm, Normal S1, Normal S2, No murmurs Abdomen: Bowel Sounds Present, Soft, Non Tender, Non-Distended, No Hepato-splenomegaly Extremities: No clubbing, No cyanosis, No edema, Capillary Refill Less than 3 Seconds Skin: - - has some excoriations on upper extremities, which are resolving Musculoskeletal: No Tenderness to Palpation of Joints or Extremities Lymphatic: No Cervical, Supraclavicular, or Inguinal Adenopathy Neurological: Cranial nerves II-XII grossly intact, Neuro grossly intact Psych/Mental Status: Normal Affect, Appropriate, Alert and oriented to time, place, person, mood and affect Plan as discussed above. - Physical Exam Vital Signs Temp Pulse Resp BP Pulse Ox 98.3 F 74 18 158/66 H 98 10/09/18 13:22 10/09/18 13:22 10/09/18 13:22 10/09/18 13:22 10/09/18 13:22 Oxygen Delivery Method Room Air Weight: 251 lb 15.814 oz Body Mass Index (BMI) 36.1 Intake and Output for Last 24 Hours 10/07/18 10/08/18 10/09/18 23:59 23:59 23:59 Intake Total 5800 / 5800 1983 1083 / 1083 Balance 5800 / 5800 1983 1083 / 1083 Laboratory Tests Past 24 Hrs 10/09/18 10/09/18 05:47 05:47 WBC 4.9 RBC 2.78 L Hgb 9.1 L Hct 29.0 L MCV 104.3 H MCH 32.7 H MCHC 31.4 L RDW 13.8 RDW Differential 51.9 H Plt Count 112 L MPV 11.1 Immature Gran % (Auto) 1.000 H Neut % (Auto) 64.1 Lymph % (Auto) 19.5 [place] % (Auto) 11.1 H Eos % (Auto) 4.1 Baso % (Auto) 0.2 Absolute Neuts (auto) 3.1 Absolute Lymphs (auto) 0.95 Total Counted Not Reportable Sodium 145 Potassium 4.5 Chloride 118 H Carbon Dioxide 24.0 Anion Gap 3 L BUN 42 H Creatinine 1.39 H Estim Creat Clear Calc 51.79 Est GFR (MDRD) Af Amer 65 Est GFR (MDRD) Non-Af 54 L BUN/Creatinine Ratio 30.2 H Glucose 98 Calcium 8.8 Total Creatine Kinase 308 POC Glucose 10/09/18 10/09/18 10/08/18 11:40 06:39 21:14 POC Glucose 133 H 94 116 H 10/08/18 16:15 POC Glucose 141 H Discharge Diet: Low fat/ Low Cholesterol Discharge Activity: Return to Normal Activity Weight Bearing Status: Weight bearing as tolerated Call your doctor if you observe: Fever of 101 or Higher, Numbness or Tingling, Uncontrolled pain Home Medications: Medications to take at Discharge Docusate Sodium 100 mg PO DAILY 10/06/18 Folic Acid/Vit B Complex and C [Renal-Colton Tablet] 0.8 mg PO DAILY 10/06/18 Prednisone 5 mg PO DAILY 10/06/18 Tacrolimus Anhydrous [Prograf] 3 mg PO TID 10/06/18 Tamsulosin HCl [Flomax] 0.4 mg PO DAILY 10/06/18 levETIRAcetam tablet [Keppra tablet] 1,000 mg PO BID 10/06/18 Primary Care Physician: Maame Osorio [Primary Care Provider] - Please follow up with your Primary Care Physician in: one week When: please follow up with ammunition storage superintendent and transplant team at [facility] in 1-2 weeks Disposition: [facility] facility Minutes spent on discharge:: 45 Patient Condition:: Stable Medical Necessity - Tobacco Use Smoking Status: Never smoker Tobacco Use: Non-smoker Meaningful Use Info Meaningful Use Diagnoses (Choose all that apply): None applicable Code Visit Inpatient E&M: 44411 Disch Hosp
--- NOTE | 2018-10-09 16:16 | DS.PCM_ITS ---
Discharge Date and Diagnosis Date of Admission: 10/06/18 Date of Discharge: 10/09/18 - Primary Discharge Diagnosis rhabdomyolysis debility due to mechanical falls hyperkalemia acute metabolic encephalopathy dehydration - Secondary Discharge Diagnosis ESRD s/p renal transplant Hospital Course and Treatment Imaging Results: Diagnostic Data Brain CT 10/06/18 13:32 IMPRESSION: Chronic involutional changes of the brain. Electronically Signed: Kareem Luorogerskellee, at 14:35 EDT , Service support , Chest X-Ray 10/06/18 13:32 IMPRESSION: Blunting of both costophrenic angles with mild degree of bibasilar atelectasis. Cardiomegaly. Distended colon. Electronically Signed: Kareem Luojoan, at 14:15 EDT , Service support , none Operations: None Procedures: None Summary of Care Provided: The patient is a 67 year old M with past medical history as listed. He was admitted on 10/06/2018 with a complaint of intermittent falls over the past few months. He had several falls during the week prior to admission and fell on the day of admission. He was unable to take care of himself and at time of presentation, was confused and so his sister in law gave much of the history. On admission, he was found to have rhabdomyolysis with CPK of 1518. He was admitted and managed for rhabdomyolysis due to mechanical falls, general debility due to mechanical falls and hyperkalemia as his potassium was also elevated on admission. He was also managed for acute metabolic encephalopathy likely due to dehydration was hydrated with IV fluids. CPK gradually trended down and came down to 300 on day of discharge. Hyperkalemia also resolved and potassium was 4.5 on day of admission. Patient had indeterminate troponins with a peak of around 0.095 but he had no complaints of chest pain and EKG showed no acute ST changes and this was thought to be due to renal impairment from CKD and also dehydration. He had a 2D echo which showed normal left ventricular syst olic function with EF of 65%. Patient remained stable and PT OT was consulted. He was scheduled for long term facility and was discharged to longterm on 10/09/2018. He is to follow-up with his primary care doctor and admin secretary and transplant team in [facility]. Patient seen and examined prior to discharge. He felt much better and had no complaints. Review of systems otherwise negative. Labs and vitals reviewed. Home medications reviewed and reconciled. o/e: Vital Signs Height 5 ft 10.08 in Weight: 251 lb 15.814 oz Weight in Pounds 252.0 lbs Pulse Ox 98 Temperature 98.3 F Pulse Rate 74 Respiratory Rate 18 Blood Pressure 158/66 Blood Pressure Position Semi-Fowlers [] General: Alert, Oriented x3, Cooperative, No apparent distress HEENT: Atraumatic, PERRLA, EOMI, Normocephalic Oral: Moist Mucosa Neck: Supple, No JVD, Negative Carotid Bruits Lungs: Clear to auscultation, Normal air movement, No rhonchi, No wheeze, No rales Cardiovascular: Regular rate, Regular Rhythm, Normal S1, Normal S2, No murmurs Abdomen: Bowel Sounds Present, Soft, Non Tender, Non-Distended, No Hepato- splenomegaly Extremities: No clubbing, No cyanosis, No edema, Capillary Refill Less than 3 Seconds Skin: - - has some excoriations on upper extremities, which are resolving Musculoskeletal: No Tenderness to Palpation of Joints or Extremities Lymphatic: No Cervical, Supraclavicular, or Inguinal Adenopathy Neurological: Cranial nerves II-XII grossly intact, Neuro grossly intact Psych/Mental Status: Normal Affect, Appropriate, Alert and oriented to time, place, person, mood and affect Plan as discussed above. - Physical Exam Vital Signs Temp Pulse Resp BP Pulse Ox 98.3 F 74 18 158/66 H 98 10/09/18 13:22 10/09/18 13:22 10/09/18 13:22 10/09/18 13:22 10/09/18 13:22 Oxygen Delivery Method Room Air Weight: 251 lb 15.814 oz Body Mass Index (BMI) 36.1 Intake and Output for Last 24 Hours 10/07/18 10/08/18 10/09/18 23:59 23:59 23:59 Intake Total 5800 / 5800 1983 1083 / 1083 Balance 5800 / 5800 1983 1083 / 1083 Laboratory Tests Past 24 Hrs 10/09/18 10/09/18 05:47 05:47 WBC 4.9 RBC 2.78 L Hgb 9.1 L Hct 29.0 L MCV 104.3 H MCH 32.7 H MCHC 31.4 L RDW 13.8 RDW Differential 51.9 H Plt Count 112 L MPV 11.1 Immature Gran % (Auto) 1.000 H Neut % (Auto) 64.1 Lymph % (Auto) 19.5 [place] % (Auto) 11.1 H Eos % (Auto) 4.1 Baso % (Auto) 0.2 Absolute Neuts (auto) 3.1 Absolute Lymphs (auto) 0.95 Total Counted Not Reportable Sodium 145 Potassium 4.5 Chloride 118 H Carbon Dioxide 24.0 Anion Gap 3 L BUN 42 H Creatinine 1.39 H Estim Creat Clear Calc 51.79 Est GFR (MDRD) Af Amer 65 Est GFR (MDRD) Non-Af 54 L BUN/Creatinine Ratio 30.2 H Glucose 98 Calcium 8.8 Total Creatine Kinase 308 POC Glucose 10/09/18 10/09/18 10/08/18 11:40 06:39 21:14 POC Glucose 133 H 94 116 H 10/08/18 16:15 POC Glucose 141 H Discharge Diet: Low fat/ Low Cholesterol Discharge Activity: Return to Normal Activity Weight Bearing Status: Weight bearing as tolerated Call your doctor if you observe: Fever of 101 or Higher, Numbness or Tingling, Uncontrolled pain Home Medications: Medications to take at Discharge Docusate Sodium 100 mg PO DAILY 10/06/18 Folic Acid/Vit B Complex and C [Renal-Colton Tablet] 0.8 mg PO DAILY 10/06/18 Prednisone 5 mg PO DAILY 10/06/18 Tacrolimus Anhydrous [Prograf] 3 mg PO TID 10/06/18 Tamsulosin HCl [Flomax] 0.4 mg PO DAILY 10/06/18 levETIRAcetam tablet [Keppra tablet] 1,000 mg PO BID 10/06/18 Primary Care Physician: Maame Osorio [Primary Care Provider] - Please follow up with your Primary Care Physician in: one week When: please follow up with admin secretary and transplant team at [facility] in 1-2 weeks Disposition: Care Home facility Minutes spent on discharge:: 45 Patient Condition:: Stable Medical Necessity - Tobacco Use Smoking Status: Never smoker Tobacco Use: Non-smoker Meaningful Use Info Meaningful Use Diagnoses (Choose all that apply): None applicable Code Visit Inpatient E&M: 61138 Disch Hosp
== END 2018-10-09 13:45 | disposition skilled nursing facility (03) | DRG 557 ==
LOC: ED 17:20 → MS2 17:39
PROVIDERS: Emergency Provider Emergency Medicine; Family Provider Family Medicine; PCP Family Medicine; Visit Provider Student in an Organized Health Care Education/Training Program
DX: M62.82 Rhabdomyolysis (principal); G93.41 Metabolic encephalopathy; Z94.0 Kidney transplant status; R29.6 Repeated falls; E87.5 Hyperkalemia; D69.6 Thrombocytopenia, unspecified; R53.81 Other malaise; N40.0 Benign prostatic hyperplasia without lower urinary tract symptoms; E86.0 Dehydration; N18.9 Chronic kidney disease, unspecified
CPT/HCPCS: 36415; 70450; 71045; 80048; 80076; 80164; 81001; 82140; 82550; 82962; 83690; 84484; 85025; 93005; 93306; 97162; 97166; 97530; 99285; J7030; J7040; P9612; Q9957; A4216; C8929

== ENCOUNTER → 2019-01-09 05:00 | Outpatient (REF) | payer SELFPAY ==
[2019-01-09 07:35] LABS: Absolute Lymphocyte Count 1.69 X10^3/ul (0.83-4.51); Basophil# 0.03 X10^3/uL; Basophil% 0.4 % (0-1); Eosinophil# 0.24 X10^3/uL; Eosinophils% 3.6 % (0-5); Hematocrit 35.7 % (40-54); Lymphocyte # 1.69 X10^3/ul (4.0); Lymphocyte % 25.2 % (19-41); Mean Corp Hgb Conc 30.8 g/gl (32-36); Mean Corpuscular Hgb 30.1 pg (27.0-32.0); Mean Corpuscular Volume 97.8 fL (80-94); Mean Platelet Vol. 9.7 fl (6.2-12.0); Monocyte% 10.4 % (0-10); Neutrophil # 4.02 X10^3/uL (2.7-7.7); Neutrophil % 60.1 % (47-70); Platelet Count 359 K/mm3 (150-450); RBC Distribution Width CV 14.1 % (11.6-14.6); RBC Distribution Width SD 50.7 fl (35.1-43.9); Red Blood Count 3.65 M/mm3 (4.6-6.2); White Blood Count 6.7 K/mm3 (4.4-11.0)
[2019-01-09 07:43] LABS: POSITIVE COUNT NO; POSITIVE DIFFERENTIAL NO; POSITIVE MORPHOLOGY NO
[2019-01-09 07:54] LABS: Albumin, Serum 2.5 g/dL (3.2-5.0); BUN 28 mg/dL (7-18); BUN/Creat Ratio 18.8 RATIO (10-20); Calcium,Total 9.5 mg/dL (8.5-10.1); Chloride 110 mmol/L (98-107); Creatinine, Serum 1.49 mg/dL (0.70-1.30); EST Glomerular Filtration Rate 50 mL/min (>60); Est Glom Filt Rate - Afr Amer 60 mL/min (>60); Glucose 75 mg/dL (74-106); Magnesium 2.2 mg/dL (1.6-2.6); Phosphorus 2.3 mg/dL (2.5-4.9); Potassium 3.9 mmol/L (3.5-5.1); Sodium Level 143 mmol/L (136-145)
== END ==
LOC: OLS.ACW100 05:00
PROVIDERS: Visit Provider Family Medicine
DX: G93.41 Metabolic encephalopathy (principal); M62.81 Muscle weakness (generalized); R27.9 Unspecified lack of coordination; W19.XXXD Unspecified fall, subsequent encounter; Z94.0 Kidney transplant status; I25.10 Atherosclerotic heart disease of native coronary artery without angina pectoris
CPT/HCPCS: 36415; 80069; 83735; 85025

== ENCOUNTER → 2019-01-19 05:00 | Outpatient (REF) | payer MEDICARE, MEDICAID, SELFPAY ==
[2019-01-19 07:43] LABS: AST(SGOT) 11 U/L (15-37); Alanine Aminotransfer ALT/SGPT 12 U/L (16-61); Albumin, Serum 2.5 g/dL (3.2-5.0); Alkaline Phosphatase 95 U/L (45-117); Cholesterol 158 mg/dL (200); Globulin 3.6 g/dL (2.2-4.2); High Density Lipoprotein 51 mg/dL; Protein, Total 6.1 g/dL (6.4-8.2); Triglycerides 99 mg/dL; Very Low Density Lipoprotein 20 mg/dL (5-40)
[2019-01-19 09:04] LABS: PTHIN 124.7 pg/mL (18.4-80.1)
[2019-01-19 09:06] LABS: Vitamin D,25 Hydroxy 24.4 ng/mL (29.95-100.01)
== END ==
LOC: OLS.ACW100 05:00
PROVIDERS: Visit Provider Family Medicine
DX: G93.41 Metabolic encephalopathy (principal); E87.70 Fluid overload, unspecified; G40.911 Epilepsy, unspecified, intractable, with status epilepticus; D64.9 Anemia, unspecified; I10 Essential (primary) hypertension; I25.10 Atherosclerotic heart disease of native coronary artery without angina pectoris
CPT/HCPCS: 36415; 80061; 80076; 82306; 83970

== ENCOUNTER → 2019-01-26 07:45 | Outpatient (REF) | payer SELFPAY ==
[2019-01-26 09:16] LABS: Prograf-FK506 TO CCF/UNIV MAILED SPECIMEN
== END ==
LOC: OLS.ACW100 07:45
PROVIDERS: Visit Provider Family Medicine
DX: G93.41 Metabolic encephalopathy (principal); M62.81 Muscle weakness (generalized); R27.9 Unspecified lack of coordination; W19.XXXD Unspecified fall, subsequent encounter; I25.10 Atherosclerotic heart disease of native coronary artery without angina pectoris; Z94.0 Kidney transplant status
CPT/HCPCS: 36415

== ENCOUNTER → 2019-01-29 | Outpatient (REF) | payer MEDICARE, MEDICAID, SELFPAY ==
[2019-01-29 08:43] LABS: Absolute Lymphocyte Count 1.41 X10^3/uL (0.83-4.51); Absolute Neutrophil Count 4.3 X10^3/uL (2.0-7.7); Basophil# 0.04 X10^3/uL; Basophil% 0.6 % (0-1); Eosinophil# 0.22 X10^3/uL; Eosinophils% 3.2 % (0-5); Hematocrit 36.6 % (40-54); Hemoglobin 11.2 g/dL (13.0-16.5); Lymphocyte # 1.41 X10^3/ul (4.0); Lymphocyte % 20.8 % (19-41); Mean Corp Hgb Conc 30.6 g/dL (32-36); Mean Corpuscular Hgb 30.6 pg (27.0-32.0); Mean Platelet Vol. 10.4 fl (6.2-12.0); Monocyte# 0.74 X10^3/uL; Monocyte% 10.9 % (0-10); NRBC Flagged by Analyzer 0 % (0-5); Neutrophil # 4.34 X10^3/uL (2.7-7.7); Neutrophil % 63.9 % (47-70); Platelet Count 273 K/mm3 (150-450); RBC Distribution Width CV 13.9 % (11.6-14.6); Red Blood Count 3.66 M/mm3 (4.6-6.2); White Blood Count 6.8 K/mm3 (4.4-11.0)
[2019-01-29 08:56] LABS: Albumin, Serum 2.8 g/dL (3.2-5.0); BUN 37 mg/dL (7-18); BUN/Creat Ratio 27.6 RATIO (10-20); Chloride 110 mmol/L (98-107); Creatinine, Serum 1.34 mg/dL (0.70-1.30); EST Glomerular Filtration Rate 56 mL/min (>60); Est Glom Filt Rate - Afr Amer 68 mL/min (>60); Glucose 84 mg/dL (74-106); Magnesium 2.1 mg/dL (1.6-2.6); Phosphorus 2.6 mg/dL (2.5-4.9); Potassium 4.2 mmol/L (3.5-5.1); Sodium Level 138 mmol/L (136-145)
[2019-01-29 09:20] LABS: Prograf-FK506 TO CCF/UNIV MAILED SPECIMEN
== END | disposition home or self-care (01) ==
LOC: OLS.ACW100 05:00
PROVIDERS: Visit Provider Family Medicine
DX: G93.41 Metabolic encephalopathy (principal); M62.81 Muscle weakness (generalized); R27.9 Unspecified lack of coordination; W19.XXXD Unspecified fall, subsequent encounter; Z94.0 Kidney transplant status; I25.10 Atherosclerotic heart disease of native coronary artery without angina pectoris
CPT/HCPCS: 36415; 80069; 83735; 85025

== ENCOUNTER → 2019-02-05 05:00 | Outpatient (REF) | payer MEDICARE, MEDICAID, SELFPAY ==
[2019-02-05 10:08] LABS: Absolute Lymphocyte Count 1.38 X10^3/uL (0.83-4.51); Absolute Neutrophil Count 4.5 X10^3/uL (2.0-7.7); Basophil# 0.03 X10^3/uL; Basophil% 0.4 % (0-1); Eosinophil# 0.21 X10^3/uL; Eosinophils% 3.1 % (0-5); Hematocrit 32.9 % (40-54); Lymphocyte # 1.38 X10^3/ul (4.0); Lymphocyte % 20.1 % (19-41); Mean Corp Hgb Conc 30.4 g/dL (32-36); Mean Corpuscular Hgb 30.1 pg (27.0-32.0); Mean Corpuscular Volume 99.1 fL (80-94); Mean Platelet Vol. 10.7 fl (6.2-12.0); Monocyte# 0.73 X10^3/uL; Monocyte% 10.6 % (0-10); NRBC Flagged by Analyzer 0 % (0-5); Neutrophil % 65.4 % (47-70); Platelet Count 230 K/mm3 (150-450); Red Blood Count 3.32 M/mm3 (4.6-6.2); White Blood Count 6.9 K/mm3 (4.4-11.0)
[2019-02-05 10:28] LABS: BUN 42 mg/dL (7-18); Creatinine, Serum 1.52 mg/dL (0.70-1.30); Glucose 76 mg/dL (74-106)
[2019-02-05 10:29] LABS: Albumin, Serum 2.4 g/dL (3.2-5.0); BUN/Creat Ratio 27.6 RATIO (10-20); Calcium,Total 9.4 mg/dL (8.5-10.1); Chloride 113 mmol/L (98-107); EST Glomerular Filtration Rate 48 mL/min (>60); Est Glom Filt Rate - Afr Amer 59 mL/min (>60); Magnesium 2.4 mg/dL (1.6-2.6); Phosphorus 2.9 mg/dL (2.5-4.9); Potassium 4.1 mmol/L (3.5-5.1); Sodium Level 142 mmol/L (136-145)
[2019-02-05 10:41] LABS: Prograf-FK506 TO CCF/UNIV MAILED SPECIMEN
== END ==
LOC: OLS.ACW100 05:00
PROVIDERS: Visit Provider Family Medicine
DX: G93.41 Metabolic encephalopathy (principal); M62.81 Muscle weakness (generalized); R27.9 Unspecified lack of coordination; W19.XXXD Unspecified fall, subsequent encounter; Z94.0 Kidney transplant status; I25.10 Atherosclerotic heart disease of native coronary artery without angina pectoris
CPT/HCPCS: 36415; 80069; 83735; 85025

== ENCOUNTER → 2019-02-12 05:00 | Outpatient (REF) | payer MEDICARE, MEDICAID, SELFPAY ==
[2019-02-12 08:33] LABS: Absolute Lymphocyte Count 1.39 X10^3/uL (0.83-4.51); Absolute Neutrophil Count 4.6 X10^3/uL (2.0-7.7); Basophil# 0.06 X10^3/uL; Basophil% 0.9 % (0-1); Eosinophil# 0.23 X10^3/uL; Eosinophils% 3.3 % (0-5); Hematocrit 35.7 % (40-54); Hemoglobin 10.9 g/dL (13.0-16.5); Lymphocyte # 1.39 X10^3/ul (4.0); Lymphocyte % 19.9 % (19-41); Mean Corp Hgb Conc 30.5 g/dL (32-36); Mean Corpuscular Volume 98.3 fL (80-94); Mean Platelet Vol. 10.4 fl (6.2-12.0); Monocyte# 0.66 X10^3/uL; Monocyte% 9.4 % (0-10); NRBC Flagged by Analyzer 0 % (0-5); Neutrophil # 4.62 X10^3/uL (2.7-7.7); Neutrophil % 65.9 % (47-70); Platelet Count 264 K/mm3 (150-450); RBC Distribution Width CV 13.9 % (11.6-14.6); RBC Distribution Width SD 50.4 fl (35.1-43.9); Red Blood Count 3.63 M/mm3 (4.6-6.2)
[2019-02-12 08:41] LABS: Albumin, Serum 2.9 g/dL (3.2-5.0); BUN 47 mg/dL (7-18); BUN/Creat Ratio 30.9 RATIO (10-20); Calcium,Total 9.8 mg/dL (8.5-10.1); Chloride 111 mmol/L (98-107); Creatinine, Serum 1.52 mg/dL (0.70-1.30); EST Glomerular Filtration Rate 48 mL/min (>60); Est Glom Filt Rate - Afr Amer 59 mL/min (>60); Glucose 86 mg/dL (74-106); Magnesium 2.5 mg/dL (1.6-2.6); Phosphorus 2.7 mg/dL (2.5-4.9); Potassium 4.2 mmol/L (3.5-5.1); Sodium Level 143 mmol/L (136-145)
[2019-02-12 09:18] LABS: Prograf-FK506 TO CCF/UNIV MAILED SPECIMEN
== END ==
LOC: OLS.ACW100 05:00
PROVIDERS: Visit Provider Family Medicine
DX: G93.41 Metabolic encephalopathy (principal); M62.81 Muscle weakness (generalized); R27.9 Unspecified lack of coordination; W19.XXXD Unspecified fall, subsequent encounter; I25.10 Atherosclerotic heart disease of native coronary artery without angina pectoris; Z94.0 Kidney transplant status
CPT/HCPCS: 36415; 80069; 83735; 85025

== ENCOUNTER → 2019-02-19 05:00 | Outpatient (REF) | payer MEDICARE, MEDICAID, SELFPAY ==
[2019-02-19 08:16] LABS: Absolute Lymphocyte Count 1.17 X10^3/uL (0.83-4.51); Absolute Neutrophil Count 4.6 X10^3/uL (2.0-7.7); Basophil# 0.03 X10^3/uL; Basophil% 0.4 % (0-1); Eosinophil# 0.31 X10^3/uL; Eosinophils% 4.5 % (0-5); Lymphocyte # 1.17 X10^3/ul (4.0); Lymphocyte % 17.1 % (19-41); Mean Corp Hgb Conc 30.6 g/dL (32-36); Mean Corpuscular Hgb 30.4 pg (27.0-32.0); Mean Corpuscular Volume 99.4 fL (80-94); Mean Platelet Vol. 10.1 fl (6.2-12.0); Monocyte# 0.73 X10^3/uL; Monocyte% 10.7 % (0-10); NRBC Flagged by Analyzer 0 % (0-5); Neutrophil # 4.58 X10^3/uL (2.7-7.7); Neutrophil % 66.9 % (47-70); Platelet Count 238 K/mm3 (150-450); RBC Distribution Width CV 13.7 % (11.6-14.6); RBC Distribution Width SD 49.8 fl (35.1-43.9); Red Blood Count 3.62 M/mm3 (4.6-6.2); White Blood Count 6.9 K/mm3 (4.4-11.0)
[2019-02-19 08:40] LABS: Albumin, Serum 2.7 g/dL (3.2-5.0); BUN 35 mg/dL (7-18); BUN/Creat Ratio 21.6 RATIO (10-20); Calcium,Total 9.3 mg/dL (8.5-10.1); Chloride 112 mmol/L (98-107); Creatinine, Serum 1.62 mg/dL (0.70-1.30); EST Glomerular Filtration Rate 45 mL/min (>60); Est Glom Filt Rate - Afr Amer 54 mL/min (>60); Glucose 101 mg/dL (74-106); Magnesium 2.3 mg/dL (1.6-2.6); Phosphorus 2.8 mg/dL (2.5-4.9); Potassium 4.1 mmol/L (3.5-5.1); Sodium Level 143 mmol/L (136-145)
[2019-02-19 09:02] LABS: Prograf-FK506 TO CCF/UNIV MAILED SPECIMEN
== END ==
LOC: OLS.ACW100 05:00
PROVIDERS: Visit Provider Family Medicine
DX: G93.41 Metabolic encephalopathy (principal); E87.70 Fluid overload, unspecified; G40.911 Epilepsy, unspecified, intractable, with status epilepticus; D64.9 Anemia, unspecified; I10 Essential (primary) hypertension; I25.10 Atherosclerotic heart disease of native coronary artery without angina pectoris; M62.81 Muscle weakness (generalized); R27.9 Unspecified lack of coordination; W19.XXXD Unspecified fall, subsequent encounter; Z94.0 Kidney transplant status
CPT/HCPCS: 36415; 80069; 83735; 85025

== ENCOUNTER → 2019-02-26 05:00 | Outpatient (REF) | payer MEDICARE, MEDICAID, SELFPAY ==
[2019-02-26 08:10] LABS: Absolute Lymphocyte Count 1.52 X10^3/uL (0.83-4.51); Absolute Neutrophil Count 4.7 X10^3/uL (2.0-7.7); Basophil# 0.03 X10^3/uL; Basophil% 0.4 % (0-1); Eosinophil# 0.28 X10^3/uL; Eosinophils% 3.9 % (0-5); Lymphocyte # 1.52 X10^3/ul (4.0); Mean Corp Hgb Conc 30.6 g/dL (32-36); Mean Corpuscular Hgb 30.3 pg (27.0-32.0); Mean Corpuscular Volume 99.2 fL (80-94); Mean Platelet Vol. 10.4 fl (6.2-12.0); Monocyte# 0.68 X10^3/uL; Monocyte% 9.4 % (0-10); NRBC Flagged by Analyzer 0 % (0-5); Neutrophil % 64.7 % (47-70); Platelet Count 224 K/mm3 (150-450); RBC Distribution Width CV 13.6 % (11.6-14.6); RBC Distribution Width SD 50.1 fl (35.1-43.9); Red Blood Count 3.63 M/mm3 (4.6-6.2); White Blood Count 7.3 K/mm3 (4.4-11.0)
[2019-02-26 08:28] LABS: Albumin, Serum 2.7 g/dL (3.2-5.0); BUN 51 mg/dL (7-18); BUN/Creat Ratio 31.1 RATIO (10-20); Calcium,Total 9.3 mg/dL (8.5-10.1); Chloride 115 mmol/L (98-107); Creatinine, Serum 1.64 mg/dL (0.70-1.30); EST Glomerular Filtration Rate 44 mL/min (>60); Est Glom Filt Rate - Afr Amer 54 mL/min (>60); Glucose 81 mg/dL (74-106); Magnesium 2.4 mg/dL (1.6-2.6); Phosphorus 2.6 mg/dL (2.5-4.9); Potassium 4.1 mmol/L (3.5-5.1); Sodium Level 142 mmol/L (136-145)
[2019-02-26 08:58] LABS: Prograf-FK506 TO CCF/UNIV MAILED SPECIMEN
== END ==
LOC: OLS.ACW100 05:00
PROVIDERS: Visit Provider Family Medicine
DX: G93.41 Metabolic encephalopathy (principal); M62.81 Muscle weakness (generalized); R27.9 Unspecified lack of coordination; W19.XXXD Unspecified fall, subsequent encounter; Z94.0 Kidney transplant status; I25.10 Atherosclerotic heart disease of native coronary artery without angina pectoris
CPT/HCPCS: 36415; 80069; 83735; 85025

== ENCOUNTER → 2019-03-30 08:25 | Outpatient (CLI) | payer MEDICARE, MEDICAID, SELFPAY ==
[2019-03-30 08:25] VITALS: BMI 34.4
[2019-03-30 08:47] LABS: Absolute Lymphocyte Count 1.12 X10^3/uL (0.83-4.51); Absolute Neutrophil Count 4.6 X10^3/uL (2.0-7.7); Basophil# 0.05 X10^3/uL; Basophil% 0.8 % (0-1); Eosinophil# 0.14 X10^3/uL; Eosinophils% 2.2 % (0-5); Hemoglobin 11.5 g/dL (13.0-16.5); Lymphocyte # 1.12 X10^3/ul (4.0); Lymphocyte % 17.3 % (19-41); Mean Corp Hgb Conc 29.5 g/dL (32-36); Mean Corpuscular Hgb 29.2 pg (27.0-32.0); Mean Platelet Vol. 11.3 fl (6.2-12.0); Monocyte# 0.58 X10^3/uL; NRBC Flagged by Analyzer 0 % (0-5); Neutrophil # 4.56 X10^3/uL (2.7-7.7); Neutrophil % 70.4 % (47-70); Platelet Count 212 K/mm3 (150-450); RBC Distribution Width SD 51.1 fl (35.1-43.9); Red Blood Count 3.94 M/mm3 (4.6-6.2); White Blood Count 6.5 K/mm3 (4.4-11.0)
[2019-03-30 09:28] LABS: AST(SGOT) 13 U/L (15-37); Alanine Aminotransfer ALT/SGPT 11 U/L (16-61); Albumin, Serum 2.6 g/dL (3.2-5.0); Alkaline Phosphatase 104 U/L (45-117); Anion Gap 4 (5-15); BUN 32 mg/dL (7-18); Bilirubin, Direct 0.15 mg/dL (0.00-0.30); Calcium,Total 9.2 mg/dL (8.5-10.1); Chloride 113 mmol/L (98-107); Cholesterol 189 mg/dL (200); Creatinine, Serum 1.68 mg/dL (0.70-1.30); EST Glomerular Filtration Rate 43 mL/min (>60); Est Glom Filt Rate - Afr Amer 52 mL/min (>60); Globulin 3.5 g/dL (2.2-4.2); Glucose 92 mg/dL (74-106); High Density Lipoprotein 64 mg/dL; Phosphorus 2.3 mg/dL (2.5-4.9); Potassium 4.6 mmol/L (3.5-5.1); Protein, Total 6.1 g/dL (6.4-8.2); Sodium Level 143 mmol/L (136-145); Triglycerides 119 mg/dL; Very Low Density Lipoprotein 24 mg/dL (5-40)
[2019-03-30 09:30] LABS: Prograf-FK506 TO CCF/UNIV MAILED SPECIMEN
[2019-03-30 10:54] LABS: PTHIN 238.1 pg/mL (18.4-80.1)
[2019-03-30 10:55] LABS: Vitamin D,25 Hydroxy 17.4 ng/mL (29.95-100.01)
== END ==
PROVIDERS: Family Provider Family Medicine; PCP Family Medicine
DX: Z48.298 Encounter for aftercare following other organ transplant (principal); Z41.8 Encounter for other procedures for purposes other than remedying health state; E78.5 Hyperlipidemia, unspecified; N25.81 Secondary hyperparathyroidism of renal origin; E55.9 Vitamin D deficiency, unspecified; Z94.0 Kidney transplant status
CPT/HCPCS: 36415; 80048; 80061; 80076; 82306; 83970; 84100; 85025

== ENCOUNTER → 2019-04-27 03:38 | Outpatient (CLI) | payer MEDICARE, MEDICAID, SELFPAY ==
[2019-03-30 08:25] VITALS: BMI 34.4
[2019-04-27 08:22] LABS: Absolute Lymphocyte Count 1.19 X10^3/uL (0.83-4.51); Absolute Neutrophil Count 3.7 X10^3/uL (2.0-7.7); Basophil# 0.03 X10^3/uL; Basophil% 0.5 % (0-1); Eosinophil# 0.17 X10^3/uL; Hematocrit 39.4 % (40-54); Hemoglobin 11.6 g/dL (13.0-16.5); Lymphocyte # 1.19 X10^3/ul (4.0); Lymphocyte % 21.3 % (19-41); Mean Corp Hgb Conc 29.4 g/dL (32-36); Mean Corpuscular Hgb 28.9 pg (27.0-32.0); Mean Corpuscular Volume 98.3 fL (80-94); Mean Platelet Vol. 11.1 fl (6.2-12.0); Monocyte# 0.48 X10^3/uL; Monocyte% 8.6 % (0-10); NRBC Flagged by Analyzer 0 % (0-5); Neutrophil # 3.71 X10^3/uL (2.7-7.7); Neutrophil % 66.4 % (47-70); Platelet Count 189 K/mm3 (150-450); RBC Distribution Width CV 13.8 % (11.6-14.6); RBC Distribution Width SD 50.4 fl (35.1-43.9); Red Blood Count 4.01 M/mm3 (4.6-6.2); White Blood Count 5.6 K/mm3 (4.4-11.0)
[2019-04-27 08:34] LABS: Albumin, Serum 2.5 g/dL (3.2-5.0); BUN 40 mg/dL (7-18); BUN/Creat Ratio 20.2 RATIO (10-20); Chloride 111 mmol/L (98-107); Creatinine, Serum 1.98 mg/dL (0.70-1.30); EST Glomerular Filtration Rate 36 mL/min (>60); Est Glom Filt Rate - Afr Amer 43 mL/min (>60); Glucose 94 mg/dL (74-106); Phosphorus 2.5 mg/dL (2.5-4.9); Potassium 5.1 mmol/L (3.5-5.1); Sodium Level 142 mmol/L (136-145)
[2019-04-27 09:03] LABS: Prograf-FK506 TO CCF/UNIV MAILED SPECIMEN
== END ==
PROVIDERS: Family Provider Family Medicine; PCP Family Medicine
DX: Z48.298 Encounter for aftercare following other organ transplant (principal); Z41.8 Encounter for other procedures for purposes other than remedying health state; Z94.0 Kidney transplant status; Z94.83 Pancreas transplant status
CPT/HCPCS: 36415; 80069; 85025

== ENCOUNTER → 2019-05-28 04:27 | Outpatient (CLI) | payer MEDICARE, MEDICAID, SELFPAY ==
[2019-03-30 08:25] VITALS: BMI 34.4
[2019-05-28 08:13] LABS: Absolute Lymphocyte Count 1.39 X10^3/uL (0.83-4.51); Absolute Neutrophil Count 3.3 X10^3/uL (2.0-7.7); Basophil# 0.03 X10^3/uL; Basophil% 0.5 % (0-1); Eosinophil# 0.22 X10^3/uL; Eosinophils% 3.9 % (0-5); Hematocrit 40.8 % (40-54); Hemoglobin 12.3 g/dL (13.0-16.5); Lymphocyte # 1.39 X10^3/ul (4.0); Lymphocyte % 24.6 % (19-41); Mean Corp Hgb Conc 30.1 g/dL (32-36); Mean Corpuscular Hgb 29.6 pg (27.0-32.0); Mean Corpuscular Volume 98.1 fL (80-94); Mean Platelet Vol. 10.6 fl (6.2-12.0); Monocyte# 0.71 X10^3/uL; Monocyte% 12.6 % (0-10); NRBC Flagged by Analyzer 0 % (0-5); Neutrophil # 3.25 X10^3/uL (2.7-7.7); Neutrophil % 57.5 % (47-70); Platelet Count 224 K/mm3 (150-450); RBC Distribution Width CV 13.2 % (11.6-14.6); RBC Distribution Width SD 48.1 fl (35.1-43.9); Red Blood Count 4.16 M/mm3 (4.6-6.2); White Blood Count 5.7 K/mm3 (4.4-11.0)
[2019-05-28 08:48] LABS: Albumin, Serum 2.8 g/dL (3.2-5.0); BUN 46 mg/dL (7-18); Calcium,Total 9.1 mg/dL (8.5-10.1); Chloride 108 mmol/L (98-107); EST Glomerular Filtration Rate 35 mL/min (>60); Est Glom Filt Rate - Afr Amer 43 mL/min (>60); Glucose 85 mg/dL (74-106); Magnesium 2.3 mg/dL (1.6-2.6); Phosphorus 2.6 mg/dL (2.5-4.9); Potassium 4.4 mmol/L (3.5-5.1); Sodium Level 142 mmol/L (136-145)
[2019-05-28 08:57] LABS: Prograf-FK506 TO CCF/UNIV MAILED SPECIMEN
== END ==
DX: Z48.298 Encounter for aftercare following other organ transplant (principal); Z41.8 Encounter for other procedures for purposes other than remedying health state; Z94.0 Kidney transplant status
CPT/HCPCS: 36415; 80069; 83735; 85025

== ENCOUNTER → 2019-07-06 04:22 | Outpatient (CLI) | payer MEDICARE, MEDICAID, SELFPAY ==
[2019-03-30 08:25] VITALS: BMI 34.4
[2019-07-06 08:14] LABS: Absolute Lymphocyte Count 1.04 X10^3/uL (0.83-4.51); Absolute Neutrophil Count 4.5 X10^3/uL (2.0-7.7); Basophil# 0.02 X10^3/uL; Basophil% 0.3 % (0-1); Eosinophil# 0.13 X10^3/uL; Eosinophils% 2.1 % (0-5); Hematocrit 44.7 % (40-54); Lymphocyte # 1.04 X10^3/ul (4.0); Lymphocyte % 16.7 % (19-41); Mean Corp Hgb Conc 29.1 g/dL (32-36); Mean Corpuscular Volume 99.8 fL (80-94); Mean Platelet Vol. 11.1 fl (6.2-12.0); Monocyte# 0.57 X10^3/uL; Monocyte% 9.1 % (0-10); NRBC Flagged by Analyzer 0 % (0-5); Neutrophil # 4.45 X10^3/uL (2.7-7.7); Neutrophil % 71.5 % (47-70); POSITIVE COUNT YES; Platelet Count 85 K/mm3 (150-450); RBC Distribution Width CV 13.5 % (11.6-14.6); RBC Distribution Width SD 49.8 fl (35.1-43.9); Red Blood Count 4.48 M/mm3 (4.6-6.2); White Blood Count 6.2 K/mm3 (4.4-11.0)
[2019-07-06 08:16] LABS: Differential Indicated SCAN CRITERIA MET
[2019-07-06 08:23] LABS: Albumin, Serum 2.5 g/dL (3.2-5.0); BUN 26 mg/dL (7-18); BUN/Creat Ratio 13.4 RATIO (10-20); Calcium,Total 9.3 mg/dL (8.5-10.1); Chloride 110 mmol/L (98-107); Creatinine, Serum 1.94 mg/dL (0.70-1.30); EST Glomerular Filtration Rate 37 mL/min (>60); Est Glom Filt Rate - Afr Amer 44 mL/min (>60); Glucose 92 mg/dL (74-106); Magnesium 2.3 mg/dL (1.6-2.6); Phosphorus 2.1 mg/dL (2.5-4.9); Potassium 4.4 mmol/L (3.5-5.1); Sodium Level 139 mmol/L (136-145)
[2019-07-06 09:05] LABS: Prograf-FK506 TO CCF/UNIV MAILED SPECIMEN; Vitamin D,25 Hydroxy 15.1 ng/mL (29.95-100.01)
== END ==
DX: N25.81 Secondary hyperparathyroidism of renal origin (principal); E78.5 Hyperlipidemia, unspecified; E55.9 Vitamin D deficiency, unspecified; Z48.298 Encounter for aftercare following other organ transplant; Z94.0 Kidney transplant status; Z41.8 Encounter for other procedures for purposes other than remedying health state
CPT/HCPCS: 36415; 80069; 82306; 83735; 85025

== ENCOUNTER → 2019-07-28 05:05 | Outpatient (CLI) | payer MEDICARE, SELFPAY ==
[2019-03-30 08:25] VITALS: BMI 34.4
[2019-07-28 09:34] LABS: Absolute Neutrophil Count 4.6 X10^3/uL (2.0-7.7); Basophil# 0.03 X10^3/uL; Basophil% 0.4 % (0-1); Eosinophil# 0.22 X10^3/uL; Eosinophils% 3.3 % (0-5); Hemoglobin 11.8 g/dL (13.0-16.5); Lymphocyte % 17.9 % (19-41); Mean Corp Hgb Conc 30.3 g/dL (32-36); Mean Corpuscular Hgb 29.1 pg (27.0-32.0); Mean Corpuscular Volume 96.1 fL (80-94); Mean Platelet Vol. 11.2 fl (6.2-12.0); Monocyte# 0.62 X10^3/uL; Monocyte% 9.2 % (0-10); NRBC Flagged by Analyzer 0 % (0-5); Neutrophil # 4.62 X10^3/uL (2.7-7.7); Neutrophil % 68.8 % (47-70); Platelet Count 228 K/mm3 (150-450); RBC Distribution Width CV 13.9 % (11.6-14.6); RBC Distribution Width SD 49.7 fl (35.1-43.9); Red Blood Count 4.06 M/mm3 (4.6-6.2); White Blood Count 6.7 K/mm3 (4.4-11.0)
[2019-07-28 09:49] LABS: Albumin, Serum 2.6 g/dL (3.2-5.0); BUN 39 mg/dL (7-18); BUN/Creat Ratio 16.2 RATIO (10-20); Calcium,Total 9.5 mg/dL (8.5-10.1); Chloride 114 mmol/L (98-107); Creatinine, Serum 2.41 mg/dL (0.70-1.30); EST Glomerular Filtration Rate 28 mL/min (>60); Est Glom Filt Rate - Afr Amer 34 mL/min (>60); Glucose 89 mg/dL (74-106); Magnesium 2.7 mg/dL (1.6-2.6); Phosphorus 3.1 mg/dL (2.5-4.9); Potassium 4.9 mmol/L (3.5-5.1); Sodium Level 142 mmol/L (136-145)
[2019-07-28 10:23] LABS: Prograf-FK506 TO CCF/UNIV MAILED SPECIMEN
== END ==
DX: Z48.298 Encounter for aftercare following other organ transplant (principal); Z94.0 Kidney transplant status; Z41.8 Encounter for other procedures for purposes other than remedying health state
CPT/HCPCS: 36415; 80069; 83735; 85025

== ENCOUNTER → 2019-08-31 | Outpatient (CLI) | payer MEDICARE, SELFPAY ==
[2019-03-30 08:25] VITALS: BMI 34.4
[2019-08-31 08:32] LABS: Absolute Lymphocyte Count 1.14 X10^3/uL (0.83-4.51); Basophil# 0.04 X10^3/uL; Basophil% 0.8 % (0-1); Eosinophil# 0.24 X10^3/uL; Eosinophils% 4.8 % (0-5); Hematocrit 36.6 % (40-54); Hemoglobin 11.1 g/dL (13.0-16.5); Lymphocyte # 1.14 X10^3/ul (4.0); Lymphocyte % 22.9 % (19-41); Mean Corp Hgb Conc 30.3 g/dL (32-36); Mean Corpuscular Hgb 29.3 pg (27.0-32.0); Mean Corpuscular Volume 96.6 fL (80-94); Mean Platelet Vol. 10.6 fl (6.2-12.0); Monocyte# 0.55 X10^3/uL; NRBC Flagged by Analyzer 0 % (0-5); Neutrophil # 2.98 X10^3/uL (2.7-7.7); Neutrophil % 59.9 % (47-70); Platelet Count 226 K/mm3 (150-450); RBC Distribution Width CV 13.9 % (11.6-14.6); RBC Distribution Width SD 49.7 fl (35.1-43.9); Red Blood Count 3.79 M/mm3 (4.6-6.2)
[2019-08-31 08:37] LABS: Albumin, Serum 2.6 g/dL (3.2-5.0); BUN 59 mg/dL (7-18); BUN/Creat Ratio 24.6 RATIO (10-20); Calcium,Total 9.4 mg/dL (8.5-10.1); Chloride 110 mmol/L (98-107); EST Glomerular Filtration Rate 29 mL/min (>60); Est Glom Filt Rate - Afr Amer 35 mL/min (>60); Glucose 90 mg/dL (74-106); Magnesium 2.6 mg/dL (1.6-2.6); Phosphorus 2.8 mg/dL (2.5-4.9); Potassium 5.2 mmol/L (3.5-5.1); Sodium Level 138 mmol/L (136-145)
[2019-08-31 09:13] LABS: Prograf-FK506 TO CCF/UNIV MAILED SPECIMEN
== END | disposition home or self-care (01) ==
LOC: LABSPEC 04:19
DX: Z48.298 Encounter for aftercare following other organ transplant (principal); Z94.0 Kidney transplant status
CPT/HCPCS: 36415; 80069; 83735; 85025

== ENCOUNTER → 2019-09-28 06:42 | Outpatient (CLI) | payer MEDICARE, SELFPAY ==
[2019-03-30 08:25] VITALS: BMI 34.4
[2019-09-28 08:19] LABS: Absolute Lymphocyte Count 1.15 X10^3/uL (0.83-4.51); Absolute Neutrophil Count 3.6 X10^3/uL (2.0-7.7); Basophil# 0.02 X10^3/uL; Basophil% 0.4 % (0-1); Eosinophils% 3.6 % (0-5); Hematocrit 39.4 % (40-54); Hemoglobin 11.6 g/dL (13.0-16.5); Lymphocyte # 1.15 X10^3/ul (4.0); Lymphocyte % 20.5 % (19-41); Mean Corp Hgb Conc 29.4 g/dL (32-36); Mean Corpuscular Hgb 29.1 pg (27.0-32.0); Mean Corpuscular Volume 98.7 fL (80-94); Mean Platelet Vol. 11.2 fl (6.2-12.0); Monocyte# 0.59 X10^3/uL; Monocyte% 10.5 % (0-10); NRBC Flagged by Analyzer 0 % (0-5); Neutrophil # 3.64 X10^3/uL (2.7-7.7); Neutrophil % 64.8 % (47-70); Platelet Count 188 K/mm3 (150-450); RBC Distribution Width CV 14.1 % (11.6-14.6); RBC Distribution Width SD 51.5 fl (35.1-43.9); Red Blood Count 3.99 M/mm3 (4.6-6.2); White Blood Count 5.6 K/mm3 (4.4-11.0)
[2019-09-28 08:49] LABS: ALB/GLOB Ratio 0.9 RATIO (0.9-2.4); AST(SGOT) 18 U/L (15-37); Alanine Aminotransfer ALT/SGPT 17 U/L (16-61); Albumin, Serum 2.7 g/dL (3.2-5.0); Alkaline Phosphatase 80 U/L (45-117); BUN 45 mg/dL (7-18); Chloride 114 mmol/L (98-107); Cholesterol 210 mg/dL (200); Creatinine, Serum 1.96 mg/dL (0.70-1.30); EST Glomerular Filtration Rate 36 mL/min (>60); Est Glom Filt Rate - Afr Amer 44 mL/min (>60); Glucose 86 mg/dL (74-106); High Density Lipoprotein 73 mg/dL; Magnesium 2.7 mg/dL (1.6-2.6); Phosphorus 3.5 mg/dL (2.5-4.9); Potassium 4.5 mmol/L (3.5-5.1); Protein, Total 5.7 g/dL (6.4-8.2); Sodium Level 143 mmol/L (136-145); Triglycerides 88 mg/dL; Very Low Density Lipoprotein 18 mg/dL (5-40)
[2019-09-28 09:04] LABS: Vitamin D,25 Hydroxy 21.1 ng/mL
[2019-09-28 09:12] LABS: Prograf-FK506 TO CCF/UNIV MAILED SPECIMEN
== END ==
DX: N25.81 Secondary hyperparathyroidism of renal origin (principal); E55.9 Vitamin D deficiency, unspecified; E78.5 Hyperlipidemia, unspecified; Z48.298 Encounter for aftercare following other organ transplant; Z94.0 Kidney transplant status; Z41.8 Encounter for other procedures for purposes other than remedying health state
CPT/HCPCS: 36415; 80061; 80069; 82247; 82248; 82306; 83735; 83970; 84075; 84156; 84450; 84460; 85025

== ENCOUNTER → 2019-10-27 | Outpatient (CLI) | payer MEDICARE, SELFPAY ==
[2019-03-30 08:25] VITALS: BMI 34.4
[2019-10-27 08:36] LABS: Absolute Lymphocyte Count 0.79 X10^3/uL (0.83-4.51); Basophil# 0.03 X10^3/uL; Basophil% 0.7 % (0-1); Eosinophil# 0.16 X10^3/uL; Eosinophils% 3.6 % (0-5); Hematocrit 34.8 % (40-54); Hemoglobin 10.5 g/dL (13.0-16.5); Lymphocyte # 0.79 X10^3/ul (4.0); Lymphocyte % 17.9 % (19-41); Mean Corp Hgb Conc 30.2 g/dL (32-36); Mean Corpuscular Hgb 29.3 pg (27.0-32.0); Mean Corpuscular Volume 97.2 fL (80-94); Mean Platelet Vol. 11.4 fl (6.2-12.0); Monocyte# 0.42 X10^3/uL; Monocyte% 9.5 % (0-10); NRBC Flagged by Analyzer 0 % (0-5); Neutrophil % 68.1 % (47-70); Platelet Count 182 K/mm3 (150-450); RBC Distribution Width CV 13.7 % (11.6-14.6); RBC Distribution Width SD 49.5 fl (35.1-43.9); Red Blood Count 3.58 M/mm3 (4.6-6.2); White Blood Count 4.4 K/mm3 (4.4-11.0)
[2019-10-27 08:47] LABS: Albumin, Serum 2.6 g/dL (3.2-5.0); BUN 49 mg/dL (7-18); BUN/Creat Ratio 23.4 RATIO (10-20); Calcium,Total 9.2 mg/dL (8.5-10.1); Chloride 114 mmol/L (98-107); Creatinine, Serum 2.09 mg/dL (0.70-1.30); EST Glomerular Filtration Rate 34 mL/min (>60); Est Glom Filt Rate - Afr Amer 41 mL/min (>60); Glucose 100 mg/dL (74-106); Magnesium 2.6 mg/dL (1.6-2.6); Phosphorus 3.1 mg/dL (2.5-4.9); Potassium 4.7 mmol/L (3.5-5.1); Sodium Level 143 mmol/L (136-145)
[2019-10-27 09:28] LABS: Prograf-FK506 TO CCF/UNIV MAILED SPECIMEN
== END | disposition home or self-care (01) ==
DX: Z48.298 Encounter for aftercare following other organ transplant (principal); Z41.8 Encounter for other procedures for purposes other than remedying health state; Z94.0 Kidney transplant status
CPT/HCPCS: 36415; 80069; 83735; 85025

== ENCOUNTER → 2019-12-01 04:12 | Outpatient (CLI) | payer MEDICARE, SELFPAY ==
[2019-03-30 08:25] VITALS: BMI 34.4
[2019-12-01 08:56] LABS: Absolute Neutrophil Count 3.4 X10^3/uL (2.0-7.7); Basophil# 0.04 X10^3/uL; Basophil% 0.8 % (0-1); Eosinophil# 0.18 X10^3/uL; Eosinophils% 3.5 % (0-5); Hematocrit 37.9 % (40-54); Hemoglobin 11.2 g/dL (13.0-16.5); Lymphocyte % 19.6 % (19-41); Mean Corp Hgb Conc 29.6 g/dL (32-36); Mean Corpuscular Hgb 29.4 pg (27.0-32.0); Mean Corpuscular Volume 99.5 fL (80-94); Monocyte# 0.48 X10^3/uL; Monocyte% 9.4 % (0-10); NRBC Flagged by Analyzer 0 % (0-5); Neutrophil # 3.37 X10^3/uL (2.7-7.7); Neutrophil % 66.1 % (47-70); Platelet Count 193 K/mm3 (150-450); RBC Distribution Width CV 13.7 % (11.6-14.6); RBC Distribution Width SD 50.3 fl (35.1-43.9); Red Blood Count 3.81 M/mm3 (4.6-6.2); White Blood Count 5.1 K/mm3 (4.4-11.0)
[2019-12-01 09:19] LABS: Albumin, Serum 2.6 g/dL (3.2-5.0); BUN 54 mg/dL (7-18); BUN/Creat Ratio 21.6 RATIO (10-20); Calcium,Total 8.9 mg/dL (8.5-10.1); Chloride 111 mmol/L (98-107); EST Glomerular Filtration Rate 27 mL/min (>60); Est Glom Filt Rate - Afr Amer 33 mL/min (>60); Glucose 100 mg/dL (74-106); Magnesium 2.8 mg/dL (1.6-2.6); Phosphorus 3.4 mg/dL (2.5-4.9); Potassium 4.8 mmol/L (3.5-5.1); Sodium Level 142 mmol/L (136-145)
[2019-12-01 09:41] LABS: Prograf-FK506 TO CCF/UNIV MAILED SPECIMEN
== END ==
DX: Z48.298 Encounter for aftercare following other organ transplant (principal); Z94.0 Kidney transplant status
CPT/HCPCS: 36415; 80069; 83735; 85025

== ENCOUNTER → 2019-12-29 05:24 | Outpatient (CLI) | payer MEDICARE, SELFPAY ==
[2019-03-30 08:25] VITALS: BMI 34.4
[2019-12-29 09:12] LABS: Absolute Lymphocyte Count 0.79 X10^3/uL (0.83-4.51); Absolute Neutrophil Count 3.8 X10^3/uL (2.0-7.7); Basophil# 0.03 X10^3/uL; Basophil% 0.6 % (0-1); Eosinophil# 0.13 X10^3/uL; Eosinophils% 2.5 % (0-5); Hematocrit 38.1 % (40-54); Hemoglobin 11.1 g/dL (13.0-16.5); Lymphocyte # 0.79 X10^3/ul (4.0); Lymphocyte % 15.3 % (19-41); Mean Corp Hgb Conc 29.1 g/dL (32-36); Mean Corpuscular Hgb 29.1 pg (27.0-32.0); Mean Platelet Vol. 11.3 fl (6.2-12.0); Monocyte# 0.44 X10^3/uL; Monocyte% 8.5 % (0-10); NRBC Flagged by Analyzer 0 % (0-5); Neutrophil # 3.78 X10^3/uL (2.7-7.7); Neutrophil % 72.9 % (47-70); Platelet Count 205 K/mm3 (150-450); RBC Distribution Width CV 13.5 % (11.6-14.6); Red Blood Count 3.81 M/mm3 (4.6-6.2); White Blood Count 5.2 K/mm3 (4.4-11.0)
[2019-12-29 09:32] LABS: PTHIN 375.3 pg/mL (18.4-80.1)
[2019-12-29 09:35] LABS: AST(SGOT) 19 U/L (15-37); Alanine Aminotransfer ALT/SGPT 15 U/L (16-61); Albumin, Serum 2.6 g/dL (3.2-5.0); Alkaline Phosphatase 71 U/L (45-117); Anion Gap 5 (5-15); BUN 32 mg/dL (7-18); BUN/Creat Ratio 14.6 RATIO (10-20); Bilirubin, Direct 0.14 mg/dL (0.00-0.30); Calcium,Total 9.2 mg/dL (8.5-10.1); Chloride 113 mmol/L (98-107); Cholesterol 238 mg/dL (200); Creatinine, Serum 2.19 mg/dL (0.70-1.30); EST Glomerular Filtration Rate 32 mL/min (>60); Est Glom Filt Rate - Afr Amer 38 mL/min (>60); Globulin 3.2 g/dL (2.2-4.2); Glucose 90 mg/dL (74-106); High Density Lipoprotein 80 mg/dL; Magnesium 2.4 mg/dL (1.6-2.6); Phosphorus 2.9 mg/dL (2.5-4.9); Potassium 4.7 mmol/L (3.5-5.1); Protein, Total 5.8 g/dL (6.4-8.2); Sodium Level 143 mmol/L (136-145); Triglycerides 125 mg/dL; Very Low Density Lipoprotein 25 mg/dL (5-40)
[2019-12-29 09:50] LABS: Prograf-FK506 TO CCF/UNIV MAILED SPECIMEN
[2019-12-29 11:01] LABS: Vitamin D,25 Hydroxy 14.8 ng/mL
== END ==
DX: Z48.298 Encounter for aftercare following other organ transplant (principal); Z94.0 Kidney transplant status; N25.81 Secondary hyperparathyroidism of renal origin; E78.5 Hyperlipidemia, unspecified; E55.9 Vitamin D deficiency, unspecified
CPT/HCPCS: 36415; 80048; 80061; 80076; 82306; 83735; 83970; 84100; 85025

== ENCOUNTER → 2020-01-26 04:36 | Outpatient (CLI) | payer MEDICARE, SELFPAY ==
[2019-03-30 08:25] VITALS: BMI 34.4
[2020-01-26 09:06] LABS: Absolute Lymphocyte Count 0.74 X10^3/uL (0.83-4.51); Absolute Neutrophil Count 2.9 X10^3/uL (2.0-7.7); Basophil# 0.03 X10^3/uL; Basophil% 0.7 % (0-1); Eosinophil# 0.11 X10^3/uL; Eosinophils% 2.6 % (0-5); Hematocrit 37.7 % (40-54); Hemoglobin 11.1 g/dL (13.0-16.5); Lymphocyte # 0.74 X10^3/ul (4.0); Lymphocyte % 17.5 % (19-41); Mean Corp Hgb Conc 29.4 g/dL (32-36); Mean Corpuscular Hgb 29.4 pg (27.0-32.0); Mean Corpuscular Volume 99.7 fL (80-94); Mean Platelet Vol. 11.6 fl (6.2-12.0); Monocyte# 0.41 X10^3/uL; Monocyte% 9.7 % (0-10); NRBC Flagged by Analyzer 0 % (0-5); Neutrophil # 2.92 X10^3/uL (2.7-7.7); Neutrophil % 69.3 % (47-70); Platelet Count 205 K/mm3 (150-450); RBC Distribution Width CV 13.7 % (11.6-14.6); RBC Distribution Width SD 49.8 fl (35.1-43.9); Red Blood Count 3.78 M/mm3 (4.6-6.2); White Blood Count 4.2 K/mm3 (4.4-11.0)
[2020-01-26 09:16] LABS: Albumin, Serum 2.5 g/dL (3.2-5.0); BUN 40 mg/dL (7-18); BUN/Creat Ratio 18.8 RATIO (10-20); Calcium,Total 8.7 mg/dL (8.5-10.1); Chloride 112 mmol/L (98-107); Creatinine, Serum 2.13 mg/dL (0.70-1.30); EST Glomerular Filtration Rate 33 mL/min (>60); Est Glom Filt Rate - Afr Amer 40 mL/min (>60); Glucose 85 mg/dL (74-106); Magnesium 2.5 mg/dL (1.6-2.6); Phosphorus 3.2 mg/dL (2.5-4.9); Potassium 4.3 mmol/L (3.5-5.1); Sodium Level 140 mmol/L (136-145)
[2020-01-26 09:30] LABS: Prograf-FK506 TO CCF/UNIV MAILED SPECIMEN
== END ==
DX: Z48.298 Encounter for aftercare following other organ transplant (principal); Z41.8 Encounter for other procedures for purposes other than remedying health state; Z94.0 Kidney transplant status
CPT/HCPCS: 36415; 80069; 83735; 85025

== ENCOUNTER → 2020-03-02 04:48 | Outpatient (CLI) | payer MEDICARE, SELFPAY ==
[2019-03-30 08:25] VITALS: BMI 34.4
[2020-03-02 08:24] LABS: Absolute Lymphocyte Count 1.15 X10^3/uL (0.83-4.51); Absolute Neutrophil Count 3.4 X10^3/uL (2.0-7.7); Basophil# 0.02 X10^3/uL; Basophil% 0.4 % (0-1); Eosinophil# 0.27 X10^3/uL; Hematocrit 35.2 % (40-54); Hemoglobin 10.3 g/dL (13.0-16.5); Lymphocyte # 1.15 X10^3/ul (4.0); Lymphocyte % 21.3 % (19-41); Mean Corp Hgb Conc 29.3 g/dL (32-36); Mean Corpuscular Hgb 28.8 pg (27.0-32.0); Mean Corpuscular Volume 98.3 fL (80-94); Mean Platelet Vol. 10.8 fl (6.2-12.0); Monocyte# 0.58 X10^3/uL; Monocyte% 10.7 % (0-10); NRBC Flagged by Analyzer 0 % (0-5); Neutrophil # 3.37 X10^3/uL (2.7-7.7); Neutrophil % 62.2 % (47-70); Platelet Count 279 K/mm3 (150-450); RBC Distribution Width CV 14.4 % (11.6-14.6); Red Blood Count 3.58 M/mm3 (4.6-6.2); White Blood Count 5.4 K/mm3 (4.4-11.0)
[2020-03-02 09:04] LABS: Albumin, Serum 2.7 g/dL (3.2-5.0); BUN 83 mg/dL (7-18); BUN/Creat Ratio 35.2 RATIO (10-20); Calcium,Total 8.8 mg/dL (8.5-10.1); Chloride 115 mmol/L (98-107); Creatinine, Serum 2.36 mg/dL (0.70-1.30); EST Glomerular Filtration Rate 29 mL/min (>60); Est Glom Filt Rate - Afr Amer 35 mL/min (>60); Glucose 97 mg/dL (74-106); Magnesium 3.2 mg/dL (1.6-2.6); Phosphorus 3.7 mg/dL (2.5-4.9); Potassium 4.8 mmol/L (3.5-5.1); Sodium Level 142 mmol/L (136-145)
[2020-03-02 09:10] LABS: Prograf-FK506 TO CCF/UNIV MAILED SPECIMEN
== END ==
DX: Z48.298 Encounter for aftercare following other organ transplant (principal); Z94.0 Kidney transplant status
CPT/HCPCS: 36415; 80069; 83735; 85025

== ENCOUNTER → 2020-05-02 03:42 | Outpatient (CLI) | payer MEDICARE, SELFPAY ==
[2019-03-30 08:25] VITALS: BMI 34.4
[2020-05-02 08:36] LABS: Absolute Lymphocyte Count 0.89 X10^3/uL (0.83-4.51); Absolute Neutrophil Count 3.9 X10^3/uL (2.0-7.7); Basophil# 0.04 X10^3/uL; Basophil% 0.7 % (0-1); Eosinophil# 0.26 X10^3/uL; Eosinophils% 4.6 % (0-5); Hematocrit 31.5 % (40-54); Hemoglobin 9.1 g/dL (13.0-16.5); Lymphocyte # 0.89 X10^3/ul (4.0); Lymphocyte % 15.9 % (19-41); Mean Corp Hgb Conc 28.9 g/dL (32-36); Mean Corpuscular Hgb 28.9 pg (27.0-32.0); Mean Platelet Vol. 11.2 fl (6.2-12.0); Monocyte# 0.49 X10^3/uL; Monocyte% 8.7 % (0-10); NRBC Flagged by Analyzer 0 % (0-5); Neutrophil % 69.6 % (47-70); Platelet Count 240 K/mm3 (150-450); RBC Distribution Width CV 14.1 % (11.6-14.6); Red Blood Count 3.15 M/mm3 (4.6-6.2); White Blood Count 5.6 K/mm3 (4.4-11.0)
[2020-05-02 08:54] LABS: Albumin, Serum 2.7 g/dL (3.2-5.0); BUN 73 mg/dL (7-18); BUN/Creat Ratio 25.3 RATIO (10-20); Calcium,Total 8.4 mg/dL (8.5-10.1); Chloride 113 mmol/L (98-107); Creatinine, Serum 2.89 mg/dL (0.70-1.30); EST Glomerular Filtration Rate 23 mL/min (>60); Est Glom Filt Rate - Afr Amer 28 mL/min (>60); Glucose 92 mg/dL (74-106); Magnesium 2.7 mg/dL (1.6-2.6); Phosphorus 4.3 mg/dL (2.5-4.9); Potassium 4.6 mmol/L (3.5-5.1); Sodium Level 143 mmol/L (136-145)
[2020-05-02 09:22] LABS: Prograf-FK506 TO CCF/UNIV MAILED SPECIMEN
== END ==
DX: Z94.0 Kidney transplant status (principal); Z48.298 Encounter for aftercare following other organ transplant; Z51.81 Encounter for therapeutic drug level monitoring
CPT/HCPCS: 36415; 80069; 83735; 85025

== ENCOUNTER → 2020-05-30 03:35 | Outpatient (CLI) | payer MEDICARE, SELFPAY ==
[2019-03-30 08:25] VITALS: BMI 34.4
[2020-05-30 08:35] LABS: Absolute Lymphocyte Count 0.63 X10^3/uL (0.83-4.51); Absolute Neutrophil Count 6.8 X10^3/uL (2.0-7.7); Basophil# 0.03 X10^3/uL; Basophil% 0.4 % (0-1); Eosinophil# 0.02 X10^3/uL; Eosinophils% 0.2 % (0-5); Hematocrit 30.4 % (40-54); Hemoglobin 8.7 g/dL (13.0-16.5); Lymphocyte # 0.63 X10^3/ul (4.0); Lymphocyte % 7.5 % (19-41); Mean Corp Hgb Conc 28.6 g/dL (32-36); Mean Corpuscular Hgb 28.8 pg (27.0-32.0); Mean Corpuscular Volume 100.7 fL (80-94); Mean Platelet Vol. 10.6 fl (6.2-12.0); Monocyte# 0.92 X10^3/uL; Monocyte% 10.9 % (0-10); NRBC Flagged by Analyzer 0 % (0-5); Neutrophil # 6.78 X10^3/uL (2.7-7.7); Neutrophil % 80.2 % (47-70); Platelet Count 223 K/mm3 (150-450); RBC Distribution Width CV 13.5 % (11.6-14.6); RBC Distribution Width SD 50.1 fl (35.1-43.9); Red Blood Count 3.02 M/mm3 (4.6-6.2); White Blood Count 8.5 K/mm3 (4.4-11.0)
[2020-05-30 09:03] LABS: Albumin, Serum 2.8 g/dL (3.2-5.0); BUN 66 mg/dL (7-18); BUN/Creat Ratio 22.4 RATIO (10-20); Chloride 112 mmol/L (98-107); Creatinine, Serum 2.94 mg/dL (0.70-1.30); EST Glomerular Filtration Rate 23 mL/min (>60); Est Glom Filt Rate - Afr Amer 27 mL/min (>60); Glucose 116 mg/dL (74-106); Magnesium 3.3 mg/dL (1.6-2.6); Phosphorus 4.2 mg/dL (2.5-4.9); Potassium 5.8 mmol/L (3.5-5.1); Sodium Level 142 mmol/L (136-145)
[2020-05-30 09:21] LABS: Prograf-FK506 TO CCF/UNIV MAILED SPECIMEN
== END ==
DX: Z48.298 Encounter for aftercare following other organ transplant (principal); Z94.0 Kidney transplant status; Z51.81 Encounter for therapeutic drug level monitoring
CPT/HCPCS: 36415; 80069; 83735; 85025